=== PATIENT | female | born 1940 | race Caucasian/White ===

== ENCOUNTER 2017-05-13 08:52 | Outpatient (POV) | payer MEDICARE, OTHER, SELFPAY | END 2017-05-13 11:21 | disposition home or self-care (01) | PROVIDERS: Visit Provider Podiatrist | DX: L84 Corns and callosities (principal); M20.11 Hallux valgus (acquired), right foot; M19.072 Primary osteoarthritis, left ankle and foot; M19.071 Primary osteoarthritis, right ankle and foot | CPT/HCPCS: 11056; 99213 ==

== ENCOUNTER → 2017-08-12 09:38 | Outpatient (CLI) | payer MEDICARE, SELFPAY ==
--- NOTE | 2017-08-12 09:41 | XR_ITS ---
XR foot RT min 3V, XR foot LT min 3V Ordering Physician: Carmen Mireles DPM Patient Age: 76 years: Female HISTORY: TECHNIQUE: Right foot 3 view weightbearing Left foot 3 view weightbearing COMPARISON :Left foot November 2016 LEFT FOOT 3 views: No significant change since November 20 17. There is a old healed fracture with mild deformity at distal distal fifth metatarsal. A fairly good alignment at this level with but with some mild offset of the on the oblique view again noted. The tarsals appear intact.. Mild hypertrophic spurring at the dorsal aspect of the metatarsal phalangeal joint as seen on lateral view. It most likely mainly involving the first metatarsophalangeal joint.. Moderate thickness of the cortex at metatarsals but no periosteal reaction A a slight lateral tilt of the distal phalanx great toe only with only minor flexion deformity at the toes. There may be some early narrowing at the DIP and to a screening PIP joint of the second and possibly third toe. . Suggestion of early Pes planus noted on lateral view.. IMPRESSION. Left foot: 1.. Suggestion of minor degenerative changes first tarsal metatarsal joint. 2. borderline pes planus suggested.. 3. Old healed fracture fifth metatarsal RIGHT FOOT 3 views Hallux valgus at right foot . Bunion deformity with small subchondral cyst, or disrupting cortex medial margin metatarsal head is seen best on the oblique view. Along with this there is accentuated flexion at the second toe and to lesser other toes. There may be some early degenerative changes at the DIP and PIP of toes, most evident at the second toe. Borderline pes planus on the lateral view. IMPRESSION Hallux valgus with bunion deformity at right foot. Other minor observations above
== END ==
PROVIDERS: PCP Internal Medicine Adolescent Medicine; Visit Provider Podiatrist
DX: M21.611 Bunion of right foot (principal); M21.612 Bunion of left foot
CPT/HCPCS: 73630

== ENCOUNTER → 2017-09-20 07:56 | Outpatient (CLI) | payer MEDICARE, SELFPAY ==
[2017-09-20 09:38] LABS: Hemoglobin A1C 6.2 % (0.0-7.0)
[2017-09-20 10:39] LABS: Alanine Aminotransferase 32 U/L (12-78); Albumin/Globulin Ratio 1.3 (1.1-1.8); Alkaline Phosphatase 99 U/L (46-116); Anion Gap 13.7 mEq/L (5-15); Aspartate Amino Transferase 22 U/L (15-37); Bilirubin,Total 0.4 mg/dL (0.2-1.0); Blood Urea Nitrogen 23 mg/dL (7-18); Calcium 9.7 mg/dL (8.5-10.1); Carbon Dioxide 30 mmol/L (21.0-32.0); Chloride 101 mmol/L (98-107); Chol/HDL Ratio 2.5 (1-3.5); Cholesterol 130 mg/dL (140-200); Creatinine,Serum 0.81 mg/dL (0.55-1.02); Estimated Glomerular Filt Rate 69 ml/min (>60); GFR (African American) 83 ML/MIN (>60); Globulin 3.2 gm/dl (1.3-3.2); Glucose 130 mg/dL (74-106); HDL Cholesterol 53 mg/dL (29-89); LDL Cholesterol 62 mg/dL (0-130); Potassium 4.7 mmoL/L (3.5-5.1); Sodium 140 mmol/L (136-145); Total Protein,Serum 7.2 gm/dL (6.4-8.2); Triglycerides 77 mg/dL (30-200); VLDL Cholesterol 15 mg/dL (0-40)
[2017-09-22 18:49] LABS: Microalbumin, Urine <3.0 ug/mL (Not Estab.)
== END ==
PROVIDERS: Visit Provider Nurse Practitioner Family
DX: R73.9 Hyperglycemia, unspecified (principal); I10 Essential (primary) hypertension; E78.5 Hyperlipidemia, unspecified
CPT/HCPCS: 36415; 80053; 80061; 82043; 83036

== ENCOUNTER → 2017-09-23 06:51 | Outpatient (CLI) | payer MEDICARE, SELFPAY ==
--- NOTE | 2017-09-23 06:57 | CA_ITS ---
PROCEDURE: 2-D M-mode and color Doppler study INDICATIONS FOR THE TEST: Chest pain COPD Heart Murmur Tobacco Smoking Palpitations Fatigue Syncope Edema HypertensionXDiabetes Mellitus Rheumatic Fever SOB POPE Obesity HyperlipidemiaX Family History HD Additional History PACEMAKER,ABN EKG,AF PATIENT INFORMATION HEIGHT: 63 WEIGHT:143 GENDER: Female B/P:126/60 2-D/M-MODE INTERPRETATION: 2-D MEASUREMENTS OBSERVED VALUES IN CMS Right Ventricular Dimension (RVDd) 2.4 Interventricular Septum (Thickness)(IVsd) .7 Left Ventricular Internal Dimensions(LVIDd) 4.5 Left Ventricular Posterior Wall (Thickness)(LVPWd) 1.0 Aortic Root 2.7 Aortic Cusp Separation 1.8 Left Atrial Dimensions (LAD) 2.6 2D 1. Left atrium is mildly enlarged, left ventricle is normal size, visually estimated ejection fraction 55% with no obvious regional wall motion abnormality. 2. The right atrium and right ventricle are mildly enlarged with normal contractility. There is a pacemaker lead seen in the right ventricle. 3. The aortic valve is minimally thickened and fibrosed. 4. The mitral and tricuspid valve leaflets are minimally thickened. 5. The pulmonic valve is poorly visualized. 6. No significant pericardial effusion noted. DOPPLER INTERROGATION: Doppler interrogation of the aortic, mitral and tricuspid valvular presence of mild mitral, mild aortic and mild tricuspid regurgitation, calculated right ventricular systolic pressure is 38 mmHg consistent with mild pulmonary hypertension, grade 1 diastolic dysfunction seen with tissue Doppler evidence of raised left atrial pressure. CONCLUSION: 1. Mildly enlarged left atrium, normal left ventricular size, visually estimated ejection fraction 55% with no obvious regional wall motion abnormality. Grade 1 diastolic dysfunction seen with tissue Doppler evidence of raised left atrial pressure. 2. Mildly enlarged right atrium and right ventricle, contractility of the right ventricle is normal, there is a pacemaker lead seen in the right atrium and right ventricle. 3. Mild aortic, mild mitral and tricuspid regurgitation, calculated right ventricular systolic pressure 38 mmHg consistent with mild pulmonary hypertension. 4. No significant pericardial effusion noted.
== END ==
PROVIDERS: PCP Internal Medicine Adolescent Medicine; Visit Provider Internal Medicine Cardiovascular Disease
DX: R94.31 Abnormal electrocardiogram [ECG] [EKG] (principal); I10 Essential (primary) hypertension; Z95.0 Presence of cardiac pacemaker; Z86.79 Personal history of other diseases of the circulatory system
CPT/HCPCS: 93306

== ENCOUNTER → 2018-01-08 15:04 | Outpatient (CLI) | payer MEDICARE, SELFPAY ==
[2018-01-08 15:41] LABS: Basophils % 0.4 % (0.1-2.0); Eosinophils # 0.2 K/mm3 (0.0-0.4); Eosinophils % 2.3 % (0.1-12.0); Hematocrit 41.3 % (37.0-47.0); Hemoglobin 13.9 g/dL (12.2-16.2); Lymphocytes # 2.5 K/mm3 (0.7-4.5); Lymphocytes % 26.4 K/mm3 (10-50); Mean Corpuscular HGB Conc 33.6 g/dL (31.8-35.4); Mean Corpuscular Hemoglobin 29.7 pg (27.0-31.2); Mean Corpuscular Volume 88.3 fl (81-99); Mean Platelet Volume 6.9 fl (7.4-10.4); Monocytes # 0.4 K/mm3 (0.1-1.0); Monocytes % 4.5 % (1.7-9.3); Neutrophils # 6.2 K/mm3 (1.8-7.8); Neutrophils % 66.4 % (37.0-80.0); Platelet Count 302 K/mm3 (142-424); Red Blood Count 4.67 M/mm3 (4.20-5.40); Red Cell Distribution Width 13.9 % (11.5-17.5); White Blood Count 9.3 K/mm3 (4.8-10.8)
[2018-01-08 16:36] LABS: Alanine Aminotransferase 27 U/L (12-78); Albumin/Globulin Ratio 1.2 (1.1-1.8); Alkaline Phosphatase 106 U/L (46-116); Aspartate Amino Transferase 18 U/L (15-37); Bilirubin,Total 0.3 mg/dL (0.2-1.0); Blood Urea Nitrogen 28 mg/dL (7-18); Calcium 9.4 mg/dL (8.5-10.1); Carbon Dioxide 29 mmol/L (21.0-32.0); Chloride 102 mmol/L (98-107); Estimated Glomerular Filt Rate 48 ml/min (>60); GFR (African American) 58 ML/MIN (>60); Globulin 3.4 gm/dl (1.3-3.2); Glucose 107 mg/dL (74-106); Sodium 139 mmol/L (136-145); T4 (Thyroxine) 11.4 ug/dl (4.7-13.3); Total Protein,Serum 7.4 gm/dL (6.4-8.2); Triiodothryronine (T3) Uptake 35 % (31-39)
== END ==
PROVIDERS: Visit Provider Internal Medicine Adolescent Medicine
DX: R63.4 Abnormal weight loss (principal); R73.9 Hyperglycemia, unspecified
CPT/HCPCS: 36415; 80053; 84436; 84443; 84479; 85025

== ENCOUNTER → 2018-02-26 12:54 | Outpatient (CLI) | payer MEDICARE, SELFPAY ==
[2018-02-26 13:40] LABS: Basophils % 0.4 % (0.1-2.0); Eosinophils # 0.2 K/mm3 (0.0-0.4); Eosinophils % 2.2 % (0.1-12.0); Hematocrit 38.6 % (37.0-47.0); Hemoglobin 12.4 g/dL (12.2-16.2); Lymphocytes # 2.2 K/mm3 (0.7-4.5); Lymphocytes % 28.4 K/mm3 (10-50); Mean Corpuscular HGB Conc 32.2 g/dL (31.8-35.4); Mean Corpuscular Volume 89.8 fl (81-99); Mean Platelet Volume 6.9 fl (7.4-10.4); Monocytes # 0.4 K/mm3 (0.1-1.0); Monocytes % 4.8 % (1.7-9.3); Neutrophils # 4.9 K/mm3 (1.8-7.8); Neutrophils % 64.1 % (37.0-80.0); Platelet Count 302 K/mm3 (142-424); Red Cell Distribution Width 13.7 % (11.5-17.5); White Blood Count 7.7 K/mm3 (4.8-10.8)
[2018-02-26 14:35] LABS: Hemoglobin A1C 6.8 % (0.0-7.0)
[2018-02-26 14:41] LABS: Alanine Aminotransferase 24 U/L (12-78); Albumin Level 3.6 gm/dL (3.4-5.0); Albumin/Globulin Ratio 1.2 (1.1-1.8); Alkaline Phosphatase 94 U/L (46-116); Anion Gap 9.6 mEq/L (5-15); Aspartate Amino Transferase 19 U/L (15-37); Bilirubin,Total 0.6 mg/dL (0.2-1.0); Blood Urea Nitrogen 20 mg/dL (7-18); Calcium 9.6 mg/dL (8.5-10.1); Carbon Dioxide 31 mmol/L (21.0-32.0); Chloride 99 mmol/L (98-107); Creatinine,Serum 0.86 mg/dL (0.55-1.02); Estimated Glomerular Filt Rate 64 ml/min (>60); Free Thyroxine Index 4.1 ug/dL (5.93-13.13); GFR (African American) 78 ML/MIN (>60); Glucose 124 mg/dL (74-106); Potassium 4.6 mmoL/L (3.5-5.1); Sodium 135 mmol/L (136-145); T4 (Thyroxine) 11.4 ug/dl (4.7-13.3); Thyroid Stimulating Hormone 0.63 uIU/ml (0.358-3.740); Total Protein,Serum 6.6 gm/dL (6.4-8.2); Triiodothryronine (T3) Uptake 36 % (31-39)
[2018-02-26 15:28] LABS: Erythrocyte Sedimentation Rate 11 mm/hr (0-30)
[2018-02-27 08:37] LABS: Vitamin B12 1007 pg/mL (232-1245); Vitamin D 25 Hydroxy 46.6 ng/mL (30.0-100.0)
[2018-02-27 12:19] LABS: Anti-Centromere B Antibodies <0.2 AI (0.0-0.9); Anti-Jo-1 <0.2 AI (0.0-0.9); Anti-Smith Antibody <0.2 AI (0.0-0.9); Antichromatin Antibodies <0.2 AI (0.0-0.9); Antiscleroderma-70 Antibodies <0.2 AI (0.0-0.9); RNP Antibodies <0.2 AI (0.0-0.9); Sjogren's Anti-SS-A 0.4 AI (0.0-0.9); Sjogren's Anti-SS-B <0.2 AI (0.0-0.9)
[2018-02-27 12:55] LABS: Anti-DNA (DS) Ab Qn <1 IU/mL (0-9)
== END ==
PROVIDERS: PCP Internal Medicine Adolescent Medicine; Visit Provider Nurse Practitioner Family
DX: R20.2 Paresthesia of skin (principal); M21.372 Foot drop, left foot; G72.9 Myopathy, unspecified; R73.9 Hyperglycemia, unspecified
CPT/HCPCS: 36415; 80053; 82607; 82652; 83036; 84436; 84443; 84479; 85025; 85651; 86225; 86235

== ENCOUNTER → 2018-03-31 07:58 | Outpatient (POV) | payer MEDICARE, SELFPAY | PROVIDERS: Visit Provider Specialist | DX: M21.372 Foot drop, left foot (principal); R20.2 Paresthesia of skin | CPT/HCPCS: 95886; 95908 ==

== ENCOUNTER 2018-04-28 13:43 | Outpatient (RCR) | payer MEDICARE, SELFPAY | END 2018-04-28 13:50 | disposition home or self-care (01) | LOC: PT 13:43 | PROVIDERS: Visit Provider Podiatrist | DX: M21.372 Foot drop, left foot (principal) | CPT/HCPCS: 97110; 97163 ==

== ENCOUNTER → 2018-05-07 10:05 | Outpatient (CLI) | payer MEDICARE, SELFPAY ==
[2018-05-07 10:48] LABS: Basophils % 0.6 % (0.1-2.0); Eosinophils # 0.3 K/mm3 (0.0-0.4); Hematocrit 38.7 % (37.0-47.0); Hemoglobin 12.1 g/dL (12.2-16.2); Lymphocytes # 1.2 K/mm3 (0.7-4.5); Lymphocytes % 19.7 % (10-50); Mean Corpuscular HGB Conc 31.3 g/dL (31.8-35.4); Mean Corpuscular Hemoglobin 28.4 pg (27.0-31.2); Mean Corpuscular Volume 90.8 fl (81-99); Mean Platelet Volume 7.3 fl (7.4-10.4); Monocytes # 0.3 K/mm3 (0.1-1.0); Monocytes % 4.7 % (1.7-9.3); Neutrophils # 4.4 K/mm3 (1.8-7.8); Platelet Count 297 K/mm3 (142-424); Red Blood Count 4.26 M/mm3 (4.20-5.40); Red Cell Distribution Width 13.5 % (11.5-17.5); White Blood Count 6.3 K/mm3 (4.8-10.8)
[2018-05-07 12:06] LABS: Alanine Aminotransferase 28 U/L (12-78); Albumin Level 3.7 gm/dL (3.4-5.0); Albumin/Globulin Ratio 1.2 (1.1-1.8); Alkaline Phosphatase 84 U/L (46-116); Amylase 28 U/L (25-115); Anion Gap 12.7 mEq/L (5-15); Aspartate Amino Transferase 16 U/L (15-37); Bilirubin,Total 0.4 mg/dL (0.2-1.0); Blood Urea Nitrogen 17 mg/dL (7-18); Calcium 9.5 mg/dL (8.5-10.1); Carbon Dioxide 30 mmol/L (21.0-32.0); Chloride 99 mmol/L (98-107); Creatinine,Serum 0.92 mg/dL (0.55-1.02); Estimated Glomerular Filt Rate 59 ml/min (>60); Free Thyroxine Index 4.3 ug/dL (5.93-13.13); GFR (African American) 72 ML/MIN (>60); Globulin 3.1 gm/dl (1.3-3.2); Glucose 159 mg/dL (74-106); Lipase 93 u/L (73-393); Potassium 4.7 mmoL/L (3.5-5.1); Sodium 137 mmol/L (136-145); T4 (Thyroxine) 12.2 ug/dl (4.7-13.3); Thyroid Stimulating Hormone 0.45 uIU/ml (0.358-3.740); Total Protein,Serum 6.8 gm/dL (6.4-8.2); Triiodothryronine (T3) Uptake 35 % (31-39)
[2018-05-07 14:22] LABS: Hemoglobin A1C 6.7 % (0.0-7.0)
== END ==
PROVIDERS: Visit Provider Internal Medicine Adolescent Medicine
DX: R10.32 Left lower quadrant pain (principal); R73.9 Hyperglycemia, unspecified; R63.4 Abnormal weight loss; R10.13 Epigastric pain
CPT/HCPCS: 36415; 80053; 82150; 83036; 83690; 84436; 84443; 84479; 85025

== ENCOUNTER → 2018-05-13 09:37 | Outpatient (CLI) | payer MEDICARE, SELFPAY ==
--- NOTE | 2018-05-13 09:44 | CT_ITS ---
CT abdomen pelvis w con CLINICAL INDICATION: Left lower quadrant pain weight loss and cramping him a a a a a a a a a a a a a a a a a a him a ITS.REASON: LLQ PAIN, ABD PAIN, WGT LOSS ORDERING PHYSICIAN: Adalberto Brown MD PATIENT AGE: 77 years COMPARISON: None TECHNIQUE: Axial images obtained with sagittal and coronal reformats. All CT scans at the facility use one or more dose reduction, viz: automated exposure control, ma/kV adjustment per patient size (including targeted exams where dose is matched to indication, i.e. head), or iterative reconstruction technique. PROCEDURE: Oral Contrast: Redicat IV Contrast: 75 mL of Isovue-370 FINDINGS: There are multiple bilateral lower lobe noncalcified nodules which measure up to 10 x 8 mm in the right lower lobe and 8 mm in the left lower lobe. These are suspicious for pulmonary metastasis. Dedicated CT chest may be of further value. There is a 2.7 cm isodense lesion in the hepatic dome posteriorly containing a peripheral calcification is is well-circumscribed on the immediate enhanced image but is somewhat more ill-defined on the delayed enhanced images. There is an additional 8 mm isodense lesion in the right hepatic lobe posteriorly adjacent to the larger lesion. No other liver abnormalities are evident. The spleen and right adrenal gland are unremarkable. The left adrenal gland somewhat bulky. The kidneys have an unremarkable appearance. Pancreas is abnormal. There is an ill-defined mass in the body of the pancreas measuring 3.6 x 3 cm. There is dilatation of the pancreatic duct distal to this lesion which is suspicious for neoplasm. The pancreatic head has an unremarkable appearance. There is increased soft tissue density surrounding the celiac artery at its bifurcation with increased density noted in the portal region consistent with adenopathy. The portal vein appears somewhat narrowed by this adenopathy. There are collateral veins present in the left upper quadrant There is also increased soft tissue density in the periaortic region consistent with adenopathy. This is more extensive along the left para-aortic region and extends inferiorly to the level of the aortic bifurcation. No intestinal obstruction or free air. There is mild thickening of these sigmoid colon. This is nonspecific and could be due to nondistention. No evidence of appendicitis or diverticulitis. There is degenerative disc disease at L3-L4 with retrolisthesis of L3 of approximately 6 mm. IMPRESSION: 1. 3.6 x 3 cm mass of the body of the pancreas consistent with pancreatic carcinoma with associated adenopathy in the portal region and in the retroperitoneum. There is narrowing of the main portal vein with collateral vessels in the left upper quadrant 2. Multiple pulmonary nodules in the lung bases consistent with metastatic disease. 3. At least 2 isodense lesions of the liver which are also suspicious for metastasis
== END ==
PROVIDERS: PCP Internal Medicine Adolescent Medicine; Visit Provider Internal Medicine Adolescent Medicine
DX: R10.32 Left lower quadrant pain (principal); R63.4 Abnormal weight loss
CPT/HCPCS: 74177; Q9967

== ENCOUNTER → 2018-05-14 12:49 | Outpatient (CLI) | payer MEDICARE, SELFPAY ==
--- NOTE | 2018-05-14 | CT_ITS ---
CT chest w con HISTORY: ITS.REASON: ABNORMAL CT ABD PELVIS,,R/O METS ORDERING PHYSICIAN: Rj Snyder PATIENT AGE: 77 years COMPARISON: Technique: Axial images obtained. Sagittal and coronal reformatted images are also generated and reviewed. All CT scans at the facility use one or more dose reduction, viz: automated exposure control, ma/kV adjustment per patient size (including targeted exams where dose is matched to indication, i.e. head), or iterative reconstruction technique. FINDINGS: LUNGS NODULES. Very numerous (too numerous to count) pulmonary nodular densities scattered throughout the lung carrion. Majority have Slightly ill-defined margins. Many contain a small dot of cavitation centrally. These most likely reflect metastatic nodules, & related to the pancreatic mass seen on recent CT abdomen.. Other Etiology of these small nodules must less likely but may want to exclude AFB to be thorough in the workup given the central cavitation pattern.. Majority of these pulmonary nodules measure less than 5-6 mm but there are several the measures slightly larger. For example: R UL nodule axial image 32 measuring up to 7.5 mm;. Medial RUL nodule measuring 10 mm just adjacent to the mediastinum axial slice 35.. Posterior RLL 10 x 7 mm nodule posterior RLL axial slice 54 small central cavitation. 9 mm nodule towards right CP angle axial slice 58 with small dot of central cavitation Posterior RLL and posterior sulcus 8 mm nodule Left lung. Numerous overall slight smaller throughout the left lung, but there is a 7 mm nodule at the posterior L UL axial slice 43. Also at the central left lung base 8.5 mm noduleaxial slice 52. . No pleural effusions. No focal pneumonia. Mild chronic lung changes. BILATERAL HILAR ADENOPATHY:. Low-density nodes here are similar to what was seen in the abdomen. Right sveta. 16 mm node right infrahilar region as well as a similar sized nodes just above the right pulmonary artery. Left sveta. Similar diffuse adenopathy but less prominent nodes MEDIASTINAL ADENOPATHY The adenopathy at the hilar regions extends to the base of the sveta and complete with a generous subcarinal lymph node which spans 25 mm transverse x 12 mm. Height and AP Collection of low-density enlarged nodes at the right precarinal region of the span up to 28 mm x 15 mm Great vessels appear satisfactory. Heart with mild cardiomegaly no pericardial effusion. Pacemaker noted. Overlying left chest. BONES . Again the benign hemangioma L1 noted. Stable since old MRI been no significant osseous lesions. Contrast from the myelogram earlier today earlier today is seen throughout the thoracic spine with no prominent additional findings at thoracic spine. Degenerative disc with Spondylosis lower C-spine C6/7 partially imaged. Limited views of UPPER MOST ABDOMEN: Left adrenal gland is enlarged. 20 mm transverse x 15 mm AP nonspecific nodule up to 3 cm height. Slight haziness about the left adrenal also noted-this. . Also at the upper abdomen the mass lesion at the body of pancreas is noted. It appears to partially engulf the branches of the celiac artery. . Periaortic retroperitoneal adenopathy, again noted along with Likely some additional adenopathy about the head of the pancreas as well . There also seems to be some subtle may be some wispy fluid from the tail of pancreas.. Warrant correlation with amylase and lipase as well. The BASE OF NECK is included.: Enlarged right lobe of thyroid which can contains nodules. At the inferior pole right lobe thyroid is 13 mm low-density nodule. Just superior to this is a large dense calcification spanning 13 mm AP x 12 mm height. Superior to this is a likely nodule a calcified rim measuring up to 17 mm. These are all best seen on coronal im
--- NOTE | 2018-05-14 12:56 | IR_ITS ---
IR myelogram spine lumbosacral =====LUMBAR MYELOGRAM Ordering Physician: Rj Snyder Patient Age: 77 years: Female. HISTORY: ITS.REASON: BACK PAIN low back pain. Hip pain COMPARISON :CT abdomen from yesterday: 05/13/2018 ===== PROCEDURE: Patient in prone position on the fluoroscopy table.. Following Sterile preparation and local skin anesthesia a 22-gauge spinal needle was directed to the thecal sac, entering between l5/S1 spinous processes... Lumbar puncture performed by Dr. Webster with clear CSF was obtained and sent for basic laboratories.. A total of 17 mL Isovue M200 was then introduced slowly filling the lower thecal sac. Myelogram images were obtained and subsequently patient was taken to CT for postmyelogram CT lumbar spine. Total fluoroscopy time 3 minutes 50 seconds ===== FINDINGS L5/S1. Mild disc bulge, indents anterior aspect of thecal sac. Bilateral facet hypertrophy yields mild tapering of the thecal sac L4/5: The myelogram images demonstrate most pronounced narrowing, tapering thecal sac at at this L4/5 level-reflecting the combination of the prominent posterior element hypertrophy along with disc bulge at this level. The disc bulge indents anterior aspect of the thecal sac to the left more so than right.The facet and ligamentum flavum hypertrophy yields Tapering, narrowing the spinal canal indenting the thecal sac on left more so than right as well. There is diminished filling of the axillary nerve roots bilaterally at the L4/5 level. L3/4. Marked degenerative disc space narrowing. 5.5 mm retrolisthesis of L3 on L4.-These Features indenting anterior aspect thecal sac L2/3. Mild disc bulge indents the anterior aspect of thecal sac.. There is some retained barium in the transverse colon from yesterday's CT abdomen which partially interferes with visualizing L2 on this myelogram study however does not significantly interfere with imaging on CT. . Patient was observed in outpatient of post myelogram and a subsequent CT chest was performed due to further evaluate multiple lung nodule densities noted on these recent CT studies IMPRESSION Multilevel degenerative changes & spondylosis evident on this myelogram with additional detail on subsequent CT postmyelogram. L4/5 narrowing of thecal sac & mild spinal stenosis most evident at this level.. Asymmetric disc bulge along with posterior element hypertrophy indents the thecal sac more so to the left than right L3/4. Marked disc space narrowing with retrolisthesis. Mild/moderate indentation upon the anterior thecal sac L5/S1 slight tapering of thecal sac due to disc bulge & facet hypertrophy . (Note residual contrast in colon from yesterday CT abdomen 05/13/2018 partially obscures the L2 level but this region is nicely seen on the CT postmyelogram)
--- NOTE | 2018-05-14 13:49 | CT_ITS ---
CT lumbar spine w con -post myelogram INDICATION: Mid back pain. Relief with recent epidural ITS.REASON: MYELOGRAM ORDERING PHYSICIAN: Rj Snyder PATIENT AGE: 77 years COMPARISON: CT abdomen from yesterday. Also lumbar spine series from 07/20/2016 Old MRI lumbar spine November 22, 2012 prior TECHNIQUE: Following the patient's lumbar myelogram patient was taken to CT suite for the CT lumbar spine post myelogram study. These CT Images begin at the T10 level continuing to the sacrum Helical axial images obtained through the spine with sagittal and coronal reformats. All CT scans at the facility use one or more dose reduction, viz: automated exposure control, ma/kV adjustment per patient size (including targeted exams where dose is matched to indication, i.e. head), or iterative reconstruction technique. FINDINGS: First of would note yesterday's CT abdomen study which reveal a significant appearing mass body of pancreas with associated adenopathy & retroperitoneal adenopathy. Please note that report... Today's lumbar CT and yesterday's CT abdomen shows numerous lung nodules at the lung bases and thus a subsequent CT chest performed to evaluate such. L5/S1. Mild diffuse disc bulge. Prominent Bilateral facet hypertrophy L4/5. Degenerative disc space narrowing. Asymmetric disc bulge to the left-with additional disc bulge/mild disc protrusion additionally encroaching upon the left foramen.... Also Generous posterior element & facet hypertrophy at this level which indents the posterior thecal sac, particularly to the right.. These features combine to yield moderate central canal stenosis along with bilateral foraminal encroachment; fairly pronounced foraminal encroachment to the left due to the additional disc bulge or mild disc protrusion at this level. L3/4. Long-standing Marked degenerative disc space narrowing-with prominent reactive endplate changes about this narrowed disc space. 5.5 mm mm long-standing retrolisthesis of L3 on L4. Widening at the facet joints bilaterally due to the retrolisthesis only mild degenerative changes at this level. L2/3. Mild foraminal disc bulge.. Perhaps scant 1-2 mm retrolisthesis. Equivocal L1/L2. Disc intact neural foramen widely patent. Conus ends appropriately at L2 level. Long-standing Benign hemangioma at L1 was seen on the old MRI studies November 2012 and accounts for the 2 cm diameter osseous irregularity at L1 vertebral body on today's study. L1/L2. Disc intact. Only question of scant spondylotic bulge to the right. Negligible Neural foramen widely patent T11/12 T10-11 disc spaces unremarkable ---IMPRESSION 1. Multilevel degenerative disc & facet changes again seen. Slight progression of findings at multiple levels since available 2012 MR comparison study. ... L3/4. Marked degenerative disc space narrowing & changes, with retrolisthesis L3 on L4.. slight narrowing the Central canal with moderate bilateral foraminal encroachment ... L4/5 Asymmetric disc bulge to the left, with additional disc bulge/mild protrusion encroaches upon left foramen. Prominent facet & ligament flavum hypertrophy. The combination of features yields mild /moderate central canal stenosis, as well as bilateral foraminal encroachment most evident to the left ... L5/S1. Prominent facet hypertrophy right greater than left. 2.. Other major observations: ... pancreatic mass body pancreas, with retroperitoneal adenopathy and numerous metastatic lung lesions at lung bases
[2018-05-14 14:19] LABS: Glucose,CSF 77 mg/dL (40-70); Total Protein,CSF 44.4 mg/dL (15-45)
[2018-05-14 14:45] LABS: Appearance,CSF Clear (Clear); Volume,CSF 3 mL
[2018-05-14 14:46] LABS: Red Blood Cell,CSF 1 cells/uL (0); White Blood Cell,CSF 1 cells/uL (0-5)
[2018-05-14 16:00] LABS: Mononuclear WBCs,CSF 0 %; Polynuclear WBCs,CSF 100 %
== END ==
PROVIDERS: Radiology Diagnostic Radiology; PCP Internal Medicine Adolescent Medicine; Visit Provider Orthopaedic Surgery
DX: M54.9 Dorsalgia, unspecified (principal); R91.8 Other nonspecific abnormal finding of lung field
CPT/HCPCS: 62304; 71260; 72132; 82945; 84155; 89051; Q9966; Q9967

== ENCOUNTER → 2018-06-05 10:30 | Outpatient (CLI) | payer MEDICARE, SELFPAY ==
[2018-06-05 11:06] LABS: Basophils % 0.3 % (0.1-2.0); Eosinophils # 0.3 K/mm3 (0.0-0.4); Eosinophils % 3.1 % (0.1-12.0); Hematocrit 40.9 % (37.0-47.0); Hemoglobin 12.8 g/dL (12.2-16.2); Lymphocytes # 1.1 K/mm3 (0.7-4.5); Lymphocytes % 12.3 % (10-50); Mean Corpuscular HGB Conc 31.3 g/dL (31.8-35.4); Mean Corpuscular Hemoglobin 28.6 pg (27.0-31.2); Mean Corpuscular Volume 91.2 fl (81-99); Mean Platelet Volume 7.4 fl (7.4-10.4); Monocytes # 0.4 K/mm3 (0.1-1.0); Monocytes % 4.7 % (1.7-9.3); Neutrophils # 6.8 K/mm3 (1.8-7.8); Neutrophils % 79.5 % (37.0-80.0); Platelet Count 278 K/mm3 (142-424); Red Blood Count 4.49 M/mm3 (4.20-5.40); Red Cell Distribution Width 13.2 % (11.5-17.5); White Blood Count 8.6 K/mm3 (4.8-10.8)
[2018-06-05 11:38] LABS: Alanine Aminotransferase 21 U/L (12-78); Albumin Level 3.5 gm/dL (3.4-5.0); Alkaline Phosphatase 102 U/L (46-116); Anion Gap 12.2 mEq/L (5-15); Aspartate Amino Transferase 17 U/L (15-37); Bilirubin,Total 0.4 mg/dL (0.2-1.0); Blood Urea Nitrogen 17 mg/dL (7-18); Calcium 9.2 mg/dL (8.5-10.1); Carbon Dioxide 28 mmol/L (21.0-32.0); Chloride 96 mmol/L (98-107); Creatinine,Serum 0.93 mg/dL (0.55-1.02); Estimated Glomerular Filt Rate 59 ml/min (>60); GFR (African American) 71 ML/MIN (>60); Globulin 3.5 gm/dl (1.3-3.2); Glucose 218 mg/dL (74-106); Potassium 4.2 mmoL/L (3.5-5.1); Sodium 132 mmol/L (136-145)
[2018-06-07 21:48] LABS: CA 19-9 7210 U/mL (0-35)
== END ==
PROVIDERS: Visit Provider Internal Medicine Medical Oncology
DX: C25.9 Malignant neoplasm of pancreas, unspecified (principal)
CPT/HCPCS: 36415; 80053; 85025; 86316

== ENCOUNTER 2018-06-12 09:38 | Outpatient (CLI) | payer MEDICARE, SELFPAY ==
[2018-06-12] VITALS (8 sets, daily range): BP systolic 95–143; BP diastolic 56–70; PULSE 59–75; RESP 18; TEMP 36.6; O2SAT 98
== END 2018-06-12 13:00 | disposition home or self-care (01) ==
LOC: INF 09:38
PROVIDERS: Visit Provider Internal Medicine Medical Oncology
DX: Z51.11 Encounter for antineoplastic chemotherapy (principal); C25.9 Malignant neoplasm of pancreas, unspecified
CPT/HCPCS: 96413; 96417; J9201; J9264; Q0166

== ENCOUNTER → 2018-06-16 14:57 | Outpatient (CLI) | payer MEDICARE, SELFPAY ==
[2018-06-16 15:49] LABS: Basophils % 0.3 % (0.1-2.0); Eosinophils # 0.3 K/mm3 (0.0-0.4); Hematocrit 37.7 % (37.0-47.0); Hemoglobin 11.9 g/dL (12.2-16.2); Lymphocytes # 1.2 K/mm3 (0.7-4.5); Mean Corpuscular HGB Conc 31.7 g/dL (31.8-35.4); Mean Corpuscular Hemoglobin 28.8 pg (27.0-31.2); Mean Corpuscular Volume 91.1 fl (81-99); Mean Platelet Volume 7.3 fl (7.4-10.4); Monocytes # 0.1 K/mm3 (0.1-1.0); Monocytes % 1.1 % (1.7-9.3); Neutrophils # 6.1 K/mm3 (1.8-7.8); Neutrophils % 78.7 % (37.0-80.0); Platelet Count 312 K/mm3 (142-424); Red Blood Count 4.14 M/mm3 (4.20-5.40); Red Cell Distribution Width 13.1 % (11.5-17.5); White Blood Count 7.8 K/mm3 (4.8-10.8)
[2018-06-16 16:38] LABS: Anion Gap 12.4 mEq/L (5-15); Blood Urea Nitrogen 26 mg/dL (7-18); Calcium 8.7 mg/dL (8.5-10.1); Carbon Dioxide 26 mmol/L (21.0-32.0); Chloride 100 mmol/L (98-107); Creatinine,Serum 1.21 mg/dL (0.55-1.02); Estimated Glomerular Filt Rate 43 ml/min (>60); GFR (African American) 52 ML/MIN (>60); Glucose 206 mg/dL (74-106); Potassium 4.4 mmoL/L (3.5-5.1); Sodium 134 mmol/L (136-145)
== END ==
PROVIDERS: Visit Provider Surgery
DX: R11.0 Nausea (principal); C80.1 Malignant (primary) neoplasm, unspecified
CPT/HCPCS: 36415; 80048; 85025

== ENCOUNTER 2018-06-19 10:56 | Outpatient (CLI) | payer MEDICARE, SELFPAY ==
[2018-06-19 11:58] VITALS: BP 128/69; PULSE 72; RESP 18; TEMP 36.6; O2SAT 98
[2018-06-19 12:28] VITALS: BP 123/71; PULSE 74; RESP 18; O2SAT 97
[2018-06-19 12:58] VITALS: BP 130/71; PULSE 75; RESP 18; O2SAT 98
[2018-06-19 13:28] VITALS: BP 127/74; PULSE 76; RESP 18; O2SAT 98
[2018-06-19 13:45] VITALS: BP 132/79; PULSE 73; RESP 18; O2SAT 97
== END 2018-06-19 13:45 | disposition home or self-care (01) ==
LOC: INF 10:56
PROVIDERS: Visit Provider Internal Medicine Medical Oncology
DX: Z51.11 Encounter for antineoplastic chemotherapy (principal); C25.9 Malignant neoplasm of pancreas, unspecified
CPT/HCPCS: 96413; 96417; J1642; J8501; J9201; J9264; Q0166

== ENCOUNTER → 2018-06-23 09:31 | Outpatient (CLI) | payer MEDICARE, SELFPAY ==
--- NOTE | 2018-06-23 09:40 | NVE_ITS ---
Venous Exam Indications: 729.5 Pain in limb. IMPRESSIONS 1. There is no evidence of significant reflux. 2. No evidence of deep vein thrombosis involving the veins of the left upper extremity 3. Superficial vein thrombosis involving the superficial veins of the left upper extremity Left upper extremity venous duplex. Doppler flow study including spectral analysis, color and joaquin scale imaging. Location: Vascular laboratory. Patient status: Outpatient. CRITICAL FINDINGS - Reported to: Evy - Read back and verified. - 06/23/18 - 1015 - + SVT Tables: Venous flow and imaging: + + + + Location Overall Flow properties + + + + Left internal jugular Patent Normal phasicity; spontaneous; compressible + + + + Left subclavian Patent Normal phasicity; spontaneous; normal augmentation; compressible + + + + Left axillary Patent Normal phasicity; spontaneous; normal augmentation; compressible + + + + Left brachial Patent Normal phasicity; spontaneous; normal augmentation; compressible + + + + Left cephalic Likely occluded + + + + Left basilic Patent Normal phasicity; spontaneous; normal augmentation; compressible + + + + Left radial Patent Compressible + + + + Left ulnar Patent Compressible + + + + (Report amended ) Electronically signed by: Tani Greenwood [id number]
== END ==
PROVIDERS: PCP Internal Medicine Adolescent Medicine; Visit Provider Emergency Medicine
DX: M79.602 Pain in left arm (principal)
CPT/HCPCS: 93971

== ENCOUNTER 2018-06-26 08:10 | Outpatient (CLI) | payer MEDICARE, SELFPAY ==
[2018-06-26] VITALS (7 sets, daily range): BP systolic 111–141; BP diastolic 52–82; PULSE 69–72; RESP 16–18; TEMP 36.7; O2SAT 93; BMI 22.2
[2018-06-26 08:59] LABS: Basophils % 0.4 % (0.1-2.0); Eosinophils # 0.1 K/mm3 (0.0-0.4); Eosinophils % 5.5 % (0.1-12.0); Hematocrit 29.5 % (37.0-47.0); Hemoglobin 9.4 g/dL (12.2-16.2); Lymphocytes # 0.8 K/mm3 (0.7-4.5); Lymphocytes % 39.3 % (10-50); Mean Corpuscular HGB Conc 31.8 g/dL (31.8-35.4); Mean Corpuscular Volume 91.4 fl (81-99); Mean Platelet Volume 7.8 fl (7.4-10.4); Monocytes % 2.2 % (1.7-9.3); Neutrophils # 1.1 K/mm3 (1.8-7.8); Neutrophils % 52.6 % (37.0-80.0); Platelet Count 133 K/mm3 (142-424); Red Blood Count 3.22 M/mm3 (4.20-5.40); Red Cell Distribution Width 13.3 % (11.5-17.5)
[2018-06-26 09:13] LABS: Alanine Aminotransferase 38 U/L (12-78); Albumin Level 2.5 gm/dL (3.4-5.0); Albumin/Globulin Ratio 0.7 (1.1-1.8); Alkaline Phosphatase 96 U/L (46-116); Anion Gap 11.8 mEq/L (5-15); Aspartate Amino Transferase 16 U/L (15-37); Bilirubin,Total 0.4 mg/dL (0.2-1.0); Blood Urea Nitrogen 13 mg/dL (7-18); Calcium 8.8 mg/dL (8.5-10.1); Carbon Dioxide 27 mmol/L (21.0-32.0); Chloride 100 mmol/L (98-107); Creatinine Clearance Estimated 43 mL/min (50-200); Creatinine,Serum 0.92 mg/dL (0.55-1.02); Estimated Glomerular Filt Rate 59 ml/min (>60); GFR (African American) 72 ML/MIN (>60); Globulin 3.7 gm/dl (1.3-3.2); Glucose 170 mg/dL (74-106); Potassium 3.8 mmoL/L (3.5-5.1); Sodium 135 mmol/L (136-145); Total Protein,Serum 6.2 gm/dL (6.4-8.2)
--- NOTE | 2018-07-02 13:47 | DIET.NUTRFU ---
Nutrition consult. Patient receiving chemo for pancreatic cancer. She reports starting to feel poorly about 2 days past each treatment. She usually eats chix noodle soup on those days. Otherwise, she reports she is able to eat adequately most days and she is maintaining her usual body weight. History does include a dx of diabetes approx 1 year ago, and she began using an herb berberine to control her blood sugars. She found this herb worked very well with lowering her blood sugar, but she also lost a lot of weight, approx 29 lbs over the year. Her current bmi is 21.4. Her main complaint is taste changes at this time. Particularly her coffee and teas. She is supplementing her diet with a Boost milkshake once a day. Recommendations: Discussed strategies for taste changes, baking soda/water mouth swishes prior to eating, consuming acidic foods to improve overall flavors. Recommended Beneprotein powder to add to soups, potatoes and hot cereals to improve her overall nutrition intake. Patient advised of dietitian as her nutrition resource and she is encouraged to contact us for further assistance.
== END 2018-06-26 12:25 | disposition home or self-care (01) ==
LOC: INF 08:19
PROVIDERS: Visit Provider Internal Medicine Medical Oncology
DX: Z51.11 Encounter for antineoplastic chemotherapy (principal); C25.9 Malignant neoplasm of pancreas, unspecified
CPT/HCPCS: 80053; 85025; 96413; 96417; J8501; J9201; J9264; Q0166

== ENCOUNTER 2018-07-10 08:40 | Outpatient (CLI) | payer MEDICARE, SELFPAY ==
[2018-07-10 08:46] VITALS: BMI 21.4
[2018-07-10 09:09] LABS: Basophils # 0.1 K/mm3 (0-0.2); Basophils % 0.9 % (0.1-2.0); Eosinophils # 0.2 K/mm3 (0.0-0.4); Eosinophils % 3.6 % (0.1-12.0); Hematocrit 32.2 % (37.0-47.0); Hemoglobin 10.3 g/dL (12.2-16.2); Lymphocytes # 1.4 K/mm3 (0.7-4.5); Lymphocytes % 27.1 % (10-50); Mean Corpuscular HGB Conc 32.1 g/dL (31.8-35.4); Mean Corpuscular Hemoglobin 28.9 pg (27.0-31.2); Monocytes # 0.5 K/mm3 (0.1-1.0); Monocytes % 8.4 % (1.7-9.3); Neutrophils # 3.2 K/mm3 (1.8-7.8); Neutrophils % 60.1 % (37.0-80.0); Platelet Count 735 K/mm3 (142-424); Red Blood Count 3.58 M/mm3 (4.20-5.40); Red Cell Distribution Width 15.9 % (11.5-17.5); White Blood Count 5.4 K/mm3 (4.8-10.8)
[2018-07-10 09:18] LABS: Alanine Aminotransferase 67 U/L (12-78); Albumin Level 2.9 gm/dL (3.4-5.0); Albumin/Globulin Ratio 0.8 (1.1-1.8); Alkaline Phosphatase 112 U/L (46-116); Aspartate Amino Transferase 30 U/L (15-37); Bilirubin,Total 0.3 mg/dL (0.2-1.0); Blood Urea Nitrogen 17 mg/dL (7-18); Calcium 8.9 mg/dL (8.5-10.1); Carbon Dioxide 28 mmol/L (21.0-32.0); Chloride 100 mmol/L (98-107); Creatinine Clearance Estimated 41 mL/min (50-200); Creatinine,Serum 0.87 mg/dL (0.55-1.02); Estimated Glomerular Filt Rate 63 ml/min (>60); GFR (African American) 77 ML/MIN (>60); Globulin 3.5 gm/dl (1.3-3.2); Glucose 175 mg/dL (74-106); Sodium 136 mmol/L (136-145); Total Protein,Serum 6.4 gm/dL (6.4-8.2)
[2018-07-10 10:55] VITALS: BP 120/53; PULSE 72; RESP 18; TEMP 36.4
[2018-07-10 11:10] VITALS: BP 125/60; PULSE 69; RESP 18
[2018-07-10 11:25] VITALS: BP 134/65; PULSE 74; RESP 18
[2018-07-10 11:40] VITALS: BP 151/68; PULSE 74; RESP 16
[2018-07-10 11:55] VITALS: BP 148/72; PULSE 71; RESP 16
[2018-07-10 12:15] VITALS: BP 155/74; PULSE 69; RESP 16
== END 2018-07-10 12:40 | disposition home or self-care (01) ==
LOC: INF 08:43
PROVIDERS: Visit Provider Internal Medicine Medical Oncology
DX: Z51.11 Encounter for antineoplastic chemotherapy (principal); C25.9 Malignant neoplasm of pancreas, unspecified
CPT/HCPCS: 80053; 85025; 96413; 96417; J8501; J9201; J9264; Q0166

== ENCOUNTER 2018-07-17 10:44 | Outpatient (CLI) | payer MEDICARE, SELFPAY ==
[2018-07-17 10:46] VITALS: BMI 21.7
[2018-07-17 11:06] LABS: Basophils % 0.8 % (0.1-2.0); Eosinophils # 0.3 K/mm3 (0.0-0.4); Eosinophils % 5.3 % (0.1-12.0); Hematocrit 31.5 % (37.0-47.0); Lymphocytes # 1.2 K/mm3 (0.7-4.5); Lymphocytes % 23.9 % (10-50); Mean Corpuscular HGB Conc 31.8 g/dL (31.8-35.4); Mean Corpuscular Hemoglobin 28.8 pg (27.0-31.2); Mean Corpuscular Volume 90.4 fl (81-99); Mean Platelet Volume 7.6 fl (7.4-10.4); Monocytes # 0.3 K/mm3 (0.1-1.0); Monocytes % 5.1 % (1.7-9.3); Neutrophils # 3.1 K/mm3 (1.8-7.8); Neutrophils % 64.9 % (37.0-80.0); Platelet Count 541 K/mm3 (142-424); Red Blood Count 3.48 M/mm3 (4.20-5.40); Red Cell Distribution Width 15.9 % (11.5-17.5); White Blood Count 4.8 K/mm3 (4.8-10.8)
[2018-07-17 11:23] LABS: Alanine Aminotransferase 57 U/L (12-78); Albumin Level 2.9 gm/dL (3.4-5.0); Albumin/Globulin Ratio 0.8 (1.1-1.8); Alkaline Phosphatase 109 U/L (46-116); Anion Gap 11.3 mEq/L (5-15); Aspartate Amino Transferase 26 U/L (15-37); Bilirubin,Total 0.2 mg/dL (0.2-1.0); Blood Urea Nitrogen 17 mg/dL (7-18); Calcium 9.2 mg/dL (8.5-10.1); Carbon Dioxide 29 mmol/L (21.0-32.0); Chloride 98 mmol/L (98-107); Creatinine Clearance Estimated 42 mL/min (50-200); Creatinine,Serum 0.82 mg/dL (0.55-1.02); Estimated Glomerular Filt Rate 68 ml/min (>60); GFR (African American) 82 ML/MIN (>60); Globulin 3.6 gm/dl (1.3-3.2); Glucose 182 mg/dL (74-106); Potassium 4.3 mmoL/L (3.5-5.1); Sodium 134 mmol/L (136-145); Total Protein,Serum 6.5 gm/dL (6.4-8.2)
[2018-07-17 12:50] VITALS: BP 131/73; PULSE 72; RESP 20; TEMP 36.5; O2SAT 98
[2018-07-17 13:20] VITALS: BP 129/67; PULSE 79; RESP 20; O2SAT 99
[2018-07-17 13:50] VITALS: BP 130/71; PULSE 76; RESP 20; O2SAT 98
[2018-07-17 14:16] VITALS: BP 133/69; PULSE 72; RESP 20; O2SAT 98
== END 2018-07-17 14:20 | disposition home or self-care (01) ==
LOC: INF 10:44
PROVIDERS: Visit Provider Internal Medicine Medical Oncology
DX: Z51.11 Encounter for antineoplastic chemotherapy (principal); C25.9 Malignant neoplasm of pancreas, unspecified
CPT/HCPCS: 80053; 85025; 96413; 96417; J8501; J9201; J9264; Q0166

== ENCOUNTER 2018-07-24 10:39 | Outpatient (CLI) | payer MEDICARE, SELFPAY ==
[2018-07-24] VITALS (8 sets, daily range): BP systolic 122–136; BP diastolic 53–77; PULSE 69–75; RESP 18; TEMP 36.6; O2SAT 100; BMI 21.4
[2018-07-24 10:58] LABS: Basophils % 0.7 % (0.1-2.0); Eosinophils # 0.1 K/mm3 (0.0-0.4); Eosinophils % 4.6 % (0.1-12.0); Hematocrit 28.3 % (37.0-47.0); Hemoglobin 9.5 g/dL (12.2-16.2); Lymphocytes # 0.9 K/mm3 (0.7-4.5); Lymphocytes % 36.3 % (10-50); Mean Corpuscular HGB Conc 33.5 g/dL (31.8-35.4); Mean Corpuscular Hemoglobin 30.3 pg (27.0-31.2); Mean Corpuscular Volume 90.4 fl (81-99); Monocytes # 0.1 K/mm3 (0.1-1.0); Monocytes % 2.9 % (1.7-9.3); Neutrophils # 1.3 K/mm3 (1.8-7.8); Neutrophils % 55.5 % (37.0-80.0); Platelet Count 172 K/mm3 (142-424); Red Blood Count 3.12 M/mm3 (4.20-5.40); Red Cell Distribution Width 16.6 % (11.5-17.5); White Blood Count 2.3 K/mm3 (4.8-10.8)
[2018-07-24 11:10] LABS: Alanine Aminotransferase 54 U/L (12-78); Albumin/Globulin Ratio 0.9 (1.1-1.8); Alkaline Phosphatase 113 U/L (46-116); Anion Gap 9.2 mEq/L (5-15); Aspartate Amino Transferase 23 U/L (15-37); Bilirubin,Total 0.3 mg/dL (0.2-1.0); Blood Urea Nitrogen 18 mg/dL (7-18); Calcium 9.2 mg/dL (8.5-10.1); Carbon Dioxide 30 mmol/L (21.0-32.0); Chloride 100 mmol/L (98-107); Creatinine Clearance Estimated 41 mL/min (50-200); Creatinine,Serum 0.75 mg/dL (0.55-1.02); Estimated Glomerular Filt Rate 75 ml/min (>60); GFR (African American) 91 ML/MIN (>60); Globulin 3.3 gm/dl (1.3-3.2); Glucose 129 mg/dL (74-106); Potassium 4.2 mmoL/L (3.5-5.1); Sodium 135 mmol/L (136-145); Total Protein,Serum 6.3 gm/dL (6.4-8.2)
[2018-07-25 10:54] LABS: CA 19-9 2713 U/mL (0-35)
== END 2018-07-24 14:50 | disposition home or self-care (01) ==
LOC: INF 10:39
PROVIDERS: Visit Provider Internal Medicine Medical Oncology
DX: Z51.11 Encounter for antineoplastic chemotherapy (principal); C25.9 Malignant neoplasm of pancreas, unspecified
CPT/HCPCS: 80053; 85025; 86316; 96413; 96415; 96417; J9201; J9264; Q0166

== ENCOUNTER → 2018-08-04 08:28 | Outpatient (CLI) | payer MEDICARE, SELFPAY ==
[2018-08-04 08:17] VITALS: BMI 21.7
--- NOTE | 2018-08-04 09:00 | CT_ITS ---
CT abdomen pelvis w con CLINICAL INDICATION: Follow-up metastatic pancreatic cancer ITS.REASON: PANCREATIC CA ORDERING PHYSICIAN: Amelia Tian MD PATIENT AGE: 77 years COMPARISON: None TECHNIQUE: Axial images obtained with sagittal and coronal reformats. All CT scans at the facility use one or more dose reduction, viz: automated exposure control, ma/kV adjustment per patient size (including targeted exams where dose is matched to indication, i.e. head), or iterative reconstruction technique. PROCEDURE: Oral Contrast: Redicat IV Contrast: 75 mL's Optiray 350 performed in conjunction with the chest CT. FINDINGS: There are 2 Isodense liver lesions are once again noted the largest measuring 2.5 x 2.4 cm containing a small central calcification not significantly changed. No new liver lesions are evident. The left adrenal gland is enlarged measuring 1.8 x 1.5 cm not significantly changed. Hypoattenuating mass once again noted involving the body of the pancreas which has somewhat decreased in size measuring 2.9 x 3.7 cm previously 3.8 x 4.2. Spleen, right adrenal gland, and kidneys have an unremarkable appearance. No intestinal obstruction or free air. No pelvic mass. Small amount of fluid is present in the pelvis. There is a small sclerotic focus involving the anterior aspect of the T11 vertebral body which has developed in the interval. A lucent lesion once again noted involving L1 vertebral body probably related to a hemangioma unchanged. A sclerotic focus involves right femoral neck unchanged and may be due to a bone island. There is a new area of mixed sclerosis and lucency along the right iliac crest for metastatic lesion not readily apparent on the previous exam. IMPRESSION: 1. No change in the hepatic and left adrenal metastasis. 2. The pancreatic mass appears slightly smaller. 3. There are 2 new bony lesions one along the right iliac crest measuring approximately 3 cm in width and 1 cm AP and another new sclerotic area at T11 suspicious for bony metastasis
--- NOTE | 2018-08-04 09:00 | CT_ITS ---
CT chest w con HISTORY: Follow-up pancreatic cancer ITS.REASON: PANCREATIC CANCER ORDERING PHYSICIAN: Amelia Tian MD PATIENT AGE: 77 years COMPARISON: 05/14/2018 TECHNIQUE: Axial images obtained following the administration of 75 mL of Optiray 350 . Sagittal, and coronal reformatted images are also generated and reviewed. All CT scans at the facility use one or more dose reduction, viz: automated exposure control, ma/kV adjustment per patient size (including targeted exams where dose is matched to indication, i.e. head), or iterative reconstruction technique. FINDINGS: The right lobe of the thyroid gland is enlarged with multiple nodules once again noted some which are partially calcified. This does not appear significantly changed. Mediastinal and right hilar adenopathy has shown some improvement. Precarinal lymph node measures 1.8 x 1.5 cm previously 2.9 x 1.6 cm. Right hilar node measures 0.8 cm previously 1.6 cm. Multiple small bilateral pulmonary nodules are once again noted. Medial these have slightly decreased in size. Some are unchanged. There is an area of ground glass consolidation in the right lower lobe superior segment. In the right posterior hilar region there is a slightly enlarged lymph node adjacent to this area of consolidation. This node has increased in size and measures 11 mm could be response to the underlying infection. There is mild diffuse bronchial thickening. There is a small right pleural effusion which is developed since the previous exam and trace left pleural effusion which is also developed since the previous exam. A new mixed lucent lesion with sclerotic margin is present involving the T7 vertebral body. There is a new sclerotic lesion involving the left aspect of the manubrium at 9 mm radiolucent lesion is present in the left manubrium at the first costal sternal junction at 7 mm unchanged. IMPRESSION: There is a mixed response noted to the metastatic disease. The mediastinal and hilar adenopathy has improved and numerous small pulmonary nodules have decreased in size while others are unchanged. One area of adenopathy in the right posterior hilar region has increased in volume. There is some alveolar consolidation in the superior segment of the right lower lobe adjacent to this lymph node. Small bilateral pleural effusions have developed A new mixed lytic and blastic lesion is present involving T7 and a new lesion is also present in the left aspect of the manubrium consistent with skeletal metastasis.
== END ==
PROVIDERS: PCP Internal Medicine Adolescent Medicine; Visit Provider Internal Medicine Medical Oncology
DX: C25.9 Malignant neoplasm of pancreas, unspecified (principal)
CPT/HCPCS: 71260; 74177; J1642; Q9967

== ENCOUNTER 2018-08-07 11:42 | Outpatient (CLI) | payer MEDICARE, SELFPAY ==
[2018-08-07 09:35] VITALS: BMI 21.7
[2018-08-07 10:23] LABS: Basophils % 0.6 % (0.1-2.0); Eosinophils # 0.3 K/mm3 (0.0-0.4); Eosinophils % 6.1 % (0.1-12.0); Hematocrit 30.4 % (37.0-47.0); Hemoglobin 9.6 g/dL (12.2-16.2); Mean Corpuscular HGB Conc 31.5 g/dL (31.8-35.4); Mean Corpuscular Hemoglobin 29.6 pg (27.0-31.2); Mean Corpuscular Volume 93.7 fl (81-99); Mean Platelet Volume 7.7 fl (7.4-10.4); Monocytes # 0.5 K/mm3 (0.1-1.0); Monocytes % 10.1 % (1.7-9.3); Neutrophils # 2.9 K/mm3 (1.8-7.8); Neutrophils % 61.3 % (37.0-80.0); Platelet Count 554 K/mm3 (142-424); Red Blood Count 3.24 M/mm3 (4.20-5.40); Red Cell Distribution Width 18.1 % (11.5-17.5); White Blood Count 4.7 K/mm3 (4.8-10.8)
[2018-08-07 10:32] LABS: Alanine Aminotransferase 36 U/L (12-78); Albumin/Globulin Ratio 0.9 (1.1-1.8); Alkaline Phosphatase 103 U/L (46-116); Anion Gap 11.2 mEq/L (5-15); Aspartate Amino Transferase 20 U/L (15-37); Bilirubin,Total 0.3 mg/dL (0.2-1.0); Blood Urea Nitrogen 20 mg/dL (7-18); Calcium 8.9 mg/dL (8.5-10.1); Carbon Dioxide 28 mmol/L (21.0-32.0); Chloride 102 mmol/L (98-107); Creatinine Clearance Estimated 42 mL/min (50-200); Creatinine,Serum 0.77 mg/dL (0.55-1.02); Estimated Glomerular Filt Rate 73 ml/min (>60); GFR (African American) 88 ML/MIN (>60); Globulin 3.3 gm/dl (1.3-3.2); Glucose 176 mg/dL (74-106); Potassium 4.2 mmoL/L (3.5-5.1); Sodium 137 mmol/L (136-145); Total Protein,Serum 6.3 gm/dL (6.4-8.2)
[2018-08-07 12:37] VITALS: BP 123/78; PULSE 69; RESP 18; TEMP 36.8; O2SAT 97
[2018-08-07 13:07] VITALS: BP 126/74; PULSE 71; RESP 18; O2SAT 96
[2018-08-07 13:37] VITALS: BP 128/77; PULSE 72; RESP 18; O2SAT 97
[2018-08-07 14:00] VITALS: BP 139/64; PULSE 71; RESP 18; O2SAT 97
== END 2018-08-07 14:05 | disposition home or self-care (01) ==
LOC: INF 11:42
PROVIDERS: Visit Provider Internal Medicine Medical Oncology
DX: Z51.11 Encounter for antineoplastic chemotherapy (principal); C25.9 Malignant neoplasm of pancreas, unspecified
CPT/HCPCS: 80053; 85025; 96413; 96417; J1642; J8501; J9201; J9264; Q0166

== ENCOUNTER 2018-08-13 11:05 | Outpatient (CLI) | payer MEDICARE, SELFPAY ==
[2018-08-13 11:12] VITALS: BMI 22.4
[2018-08-13 11:31] LABS: Basophils % 0.9 % (0.1-2.0); Eosinophils # 0.1 K/mm3 (0.0-0.4); Eosinophils % 3.3 % (0.1-12.0); Hematocrit 28.5 % (37.0-47.0); Hemoglobin 9.3 g/dL (12.2-16.2); Lymphocytes # 1.2 K/mm3 (0.7-4.5); Lymphocytes % 34.7 % (10-50); Mean Corpuscular HGB Conc 32.5 g/dL (31.8-35.4); Mean Corpuscular Hemoglobin 29.9 pg (27.0-31.2); Mean Platelet Volume 7.9 fl (7.4-10.4); Monocytes # 0.1 K/mm3 (0.1-1.0); Monocytes % 2.1 % (1.7-9.3); Neutrophils % 59.1 % (37.0-80.0); Platelet Count 651 K/mm3 (142-424); Red Blood Count 3.09 M/mm3 (4.20-5.40); Red Cell Distribution Width 17.3 % (11.5-17.5); White Blood Count 3.4 K/mm3 (4.8-10.8)
[2018-08-13 12:37] VITALS: BP 134/70; PULSE 74; RESP 18; TEMP 36.7; O2SAT 98
[2018-08-13 13:07] VITALS: BP 129/72; PULSE 76; RESP 18; O2SAT 97
[2018-08-13 13:37] VITALS: BP 131/71; PULSE 74; RESP 18; O2SAT 98
[2018-08-13 14:07] VITALS: BP 127/75; PULSE 71; RESP 18; O2SAT 97
[2018-08-13 14:25] VITALS: BP 130/70; PULSE 74; RESP 18; O2SAT 97
== END 2018-08-13 14:30 | disposition home or self-care (01) ==
LOC: INF 11:05
PROVIDERS: Visit Provider Internal Medicine Medical Oncology
DX: C25.9 Malignant neoplasm of pancreas, unspecified (principal)
CPT/HCPCS: 85025; 96413; 96417; J1642; J8501; J9201; J9264; Q0166

== ENCOUNTER 2018-08-21 09:01 | Outpatient (CLI) | payer MEDICARE, SELFPAY ==
[2018-08-21 09:03] VITALS: BMI 22.4
[2018-08-21 09:31] LABS: Basophils % 0.5 % (0.1-2.0); Eosinophils # 0.2 K/mm3 (0.0-0.4); Eosinophils % 4.6 % (0.1-12.0); Hemoglobin 9.2 g/dL (12.2-16.2); Lymphocytes # 0.9 K/mm3 (0.7-4.5); Lymphocytes % 29.7 % (10-50); Mean Corpuscular HGB Conc 31.6 g/dL (31.8-35.4); Mean Corpuscular Hemoglobin 29.5 pg (27.0-31.2); Mean Corpuscular Volume 93.4 fl (81-99); Mean Platelet Volume 7.8 fl (7.4-10.4); Monocytes # 0.1 K/mm3 (0.1-1.0); Monocytes % 3.9 % (1.7-9.3); Neutrophils # 1.9 K/mm3 (1.8-7.8); Neutrophils % 61.4 % (37.0-80.0); Platelet Count 174 K/mm3 (142-424); Red Cell Distribution Width 17.9 % (11.5-17.5); White Blood Count 3.2 K/mm3 (4.8-10.8)
[2018-08-21 09:39] LABS: Alanine Aminotransferase 68 U/L (12-78); Albumin Level 3.1 gm/dL (3.4-5.0); Alkaline Phosphatase 98 U/L (46-116); Anion Gap 11.9 mEq/L (5-15); Aspartate Amino Transferase 42 U/L (15-37); Bilirubin,Total 0.4 mg/dL (0.2-1.0); Blood Urea Nitrogen 15 mg/dL (7-18); Calcium 9.2 mg/dL (8.5-10.1); Carbon Dioxide 27 mmol/L (21.0-32.0); Chloride 104 mmol/L (98-107); Creatinine Clearance Estimated 44 mL/min (50-200); Creatinine,Serum 0.85 mg/dL (0.55-1.02); Estimated Glomerular Filt Rate 65 ml/min (>60); GFR (African American) 79 ML/MIN (>60); Globulin 3.2 gm/dl (1.3-3.2); Glucose 178 mg/dL (74-106); Potassium 3.9 mmoL/L (3.5-5.1); Sodium 139 mmol/L (136-145); Total Protein,Serum 6.3 gm/dL (6.4-8.2)
[2018-08-21 11:10] VITALS: BP 141/66; PULSE 71; RESP 18; TEMP 36.4; O2SAT 97
[2018-08-21 11:40] VITALS: BP 136/76; PULSE 76; RESP 18; O2SAT 98
[2018-08-21 12:10] VITALS: BP 139/69; PULSE 74; RESP 18; O2SAT 97
[2018-08-21 12:40] VITALS: BP 140/71; PULSE 75; RESP 18; O2SAT 98
[2018-08-21 12:50] VITALS: BP 144/71; PULSE 71; RESP 18; O2SAT 97
== END 2018-08-21 12:55 | disposition home or self-care (01) ==
LOC: INF 09:01
PROVIDERS: Visit Provider Internal Medicine Medical Oncology
DX: Z51.11 Encounter for antineoplastic chemotherapy (principal); C25.9 Malignant neoplasm of pancreas, unspecified
CPT/HCPCS: 80053; 85025; 96413; 96417; J8501; J9201; J9264; Q0166

== ENCOUNTER 2018-09-04 09:12 | Outpatient (CLI) | payer MEDICARE, SELFPAY ==
[2018-09-04 09:13] VITALS: BMI 21.9
[2018-09-04 09:42] LABS: Basophils % 0.5 % (0.1-2.0); Eosinophils # 0.2 K/mm3 (0.0-0.4); Eosinophils % 4.6 % (0.1-12.0); Hemoglobin 9.5 g/dL (12.2-16.2); Lymphocytes # 1.2 K/mm3 (0.7-4.5); Mean Corpuscular HGB Conc 31.7 g/dL (31.8-35.4); Mean Corpuscular Hemoglobin 30.2 pg (27.0-31.2); Mean Corpuscular Volume 95.1 fl (81-99); Mean Platelet Volume 8.1 fl (7.4-10.4); Monocytes # 0.4 K/mm3 (0.1-1.0); Monocytes % 9.4 % (1.7-9.3); Neutrophils # 2.5 K/mm3 (1.8-7.8); Neutrophils % 58.6 % (37.0-80.0); Platelet Count 468 K/mm3 (142-424); Red Blood Count 3.15 M/mm3 (4.20-5.40); Red Cell Distribution Width 18.2 % (11.5-17.5); White Blood Count 4.3 K/mm3 (4.8-10.8)
[2018-09-04 09:52] LABS: Alanine Aminotransferase 36 U/L (12-78); Albumin Level 3.1 gm/dL (3.4-5.0); Alkaline Phosphatase 93 U/L (46-116); Anion Gap 11.9 mEq/L (5-15); Aspartate Amino Transferase 20 U/L (15-37); Bilirubin,Total 0.3 mg/dL (0.2-1.0); Blood Urea Nitrogen 22 mg/dL (7-18); Calcium 8.8 mg/dL (8.5-10.1); Carbon Dioxide 27 mmol/L (21.0-32.0); Chloride 103 mmol/L (98-107); Creatinine Clearance Estimated 42 mL/min (50-200); Creatinine,Serum 0.83 mg/dL (0.55-1.02); Estimated Glomerular Filt Rate 67 ml/min (>60); GFR (African American) 81 ML/MIN (>60); Glucose 186 mg/dL (74-106); Potassium 3.9 mmoL/L (3.5-5.1); Sodium 138 mmol/L (136-145); Total Protein,Serum 6.1 gm/dL (6.4-8.2)
[2018-09-04 11:14] VITALS: BP 135/59; PULSE 76; RESP 18; TEMP 36.4; O2SAT 96
[2018-09-04 11:44] VITALS: BP 130/57; PULSE 74; RESP 18; O2SAT 97
[2018-09-04 12:14] VITALS: BP 131/62; PULSE 71; RESP 18; O2SAT 98
[2018-09-04 12:55] VITALS: BP 129/69; PULSE 72; RESP 18; O2SAT 97
== END 2018-09-04 13:00 | disposition home or self-care (01) ==
LOC: INF 09:12
PROVIDERS: Visit Provider Internal Medicine Medical Oncology
DX: Z51.11 Encounter for antineoplastic chemotherapy (principal); C25.9 Malignant neoplasm of pancreas, unspecified
CPT/HCPCS: 80053; 85025; 96413; 96417; J8501; J9201; J9264; Q0166

== ENCOUNTER → 2018-09-10 09:33 | Outpatient (CLI) | payer MEDICARE, SELFPAY ==
--- NOTE | 2018-09-10 09:35 | CT_ITS ---
CT head/brain wo/w con HISTORY: Pancreatic cancer, left arm weakness, left arm heaviness ITS.REASON: PANCREATIC CA ORDERING PHYSICIAN: Amelia Tian MD PATIENT AGE: 77 years COMPARISON: None TECHNIQUE: Axial images obtained without and with 100 mL Optiray 320 contrast. Brain and bone windows reviewed. All CT scans at the facility use one or more dose reduction, viz: automated exposure control, ma/kV adjustment per patient size (including targeted exams where dose is matched to indication, i.e. head), or iterative reconstruction technique. FINDINGS: No midline shift, mass effect, intracranial hemorrhage, hydrocephalus, or extra-axial fluid collection is evident. Hypoattenuation is present in the periventricular deep white matter consistent with ischemic gliotic change from microvascular disease. These areas do not demonstrate any contrast enhancement. No enhancing lesions are evident. No intra or extra-axial mass. No convincing evidence of metastatic disease no large acute infarctions evident. A small lucency is noted in the left basal ganglia region and may be due to a dilated perivascular space, an old lacunar infarction, or a choroidal fissure cyst. This is approximately 7 mm. The calvarium has an unremarkable appearance. No mastoid effusion. No sinus air-fluid levels.. IMPRESSION: 1. No acute intracranial findings. 2. No evidence of metastatic disease
--- NOTE | 2018-09-10 10:08 | HMH.ITSHM ---
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 []OMEPRAZOLE MAG 20 MG TABLET DAILY MULTIVITAMIN 1 TAB PO DAILY METOPROLOL TARTRATE 25MG PO BID MELATONIN 5MG PO DAILY BENZONATATE 100MG PO TID ATORVASTATIN 20 MG PS HS ASPIRIN 81 MG TABLET PO ONCE ALBUTEROL SULFATE HFA 90 MCG AEROSOL PRN ONDANSETRON 4 MG PO Q8HP PRN ESTROGN, CONJUGATED 1 BG WEEKLY
== END ==
PROVIDERS: PCP Internal Medicine Adolescent Medicine; Visit Provider Internal Medicine Medical Oncology
DX: C25.9 Malignant neoplasm of pancreas, unspecified (principal)
CPT/HCPCS: 70470; J1642; Q9967

== ENCOUNTER 2018-09-11 10:03 | Outpatient (CLI) | payer MEDICARE, SELFPAY ==
[2018-09-11 10:09] VITALS: BMI 22.4
[2018-09-11 10:32] LABS: Basophils % 0.6 % (0.1-2.0); Eosinophils # 0.1 K/mm3 (0.0-0.4); Eosinophils % 2.5 % (0.1-12.0); Hematocrit 28.8 % (37.0-47.0); Hemoglobin 9.2 g/dL (12.2-16.2); Lymphocytes # 0.9 K/mm3 (0.7-4.5); Lymphocytes % 32.2 % (10-50); Mean Corpuscular HGB Conc 31.8 g/dL (31.8-35.4); Mean Corpuscular Hemoglobin 29.8 pg (27.0-31.2); Mean Corpuscular Volume 93.5 fl (81-99); Monocytes # 0.1 K/mm3 (0.1-1.0); Neutrophils # 1.7 K/mm3 (1.8-7.8); Neutrophils % 59.8 % (37.0-80.0); Platelet Count 541 K/mm3 (142-424); Red Blood Count 3.08 M/mm3 (4.20-5.40); Red Cell Distribution Width 17.7 % (11.5-17.5); White Blood Count 2.9 K/mm3 (4.8-10.8)
[2018-09-11 11:22] VITALS: BP 150/75; PULSE 78; RESP 20; TEMP 36.4; O2SAT 98
[2018-09-11 11:52] VITALS: BP 149/71; PULSE 76; RESP 20; O2SAT 97
[2018-09-11 12:22] VITALS: BP 149/72; PULSE 74; RESP 20; O2SAT 98
[2018-09-11 12:52] VITALS: BP 151/79; PULSE 78; RESP 20; O2SAT 98
[2018-09-11 13:00] VITALS: BP 150/78; PULSE 74; RESP 20; O2SAT 98
== END 2018-09-11 13:05 | disposition home or self-care (01) ==
LOC: INF 10:03
PROVIDERS: Visit Provider Internal Medicine Medical Oncology
DX: Z51.11 Encounter for antineoplastic chemotherapy (principal); C25.9 Malignant neoplasm of pancreas, unspecified
CPT/HCPCS: 85025; 96413; 96417; J9201; J9264; Q0166

== ENCOUNTER → 2018-09-18 08:48 | Outpatient (CLI) | payer MEDICARE, SELFPAY ==
[2018-09-18 08:51] VITALS: BMI 21.7
[2018-09-18 09:24] LABS: Basophils % 0.9 % (0.1-2.0); Eosinophils % 2.2 % (0.1-12.0); Hematocrit 28.3 % (37.0-47.0); Hemoglobin 9.2 g/dL (12.2-16.2); Lymphocytes # 0.9 K/mm3 (0.7-4.5); Lymphocytes % 48.4 % (10-50); Mean Corpuscular HGB Conc 32.4 g/dL (31.8-35.4); Mean Corpuscular Hemoglobin 30.1 pg (27.0-31.2); Mean Corpuscular Volume 92.8 fl (81-99); Mean Platelet Volume 7.4 fl (7.4-10.4); Monocytes # 0.1 K/mm3 (0.1-1.0); Monocytes % 3.5 % (1.7-9.3); Neutrophils # 0.8 K/mm3 (1.8-7.8); Platelet Count 217 K/mm3 (142-424); Red Blood Count 3.05 M/mm3 (4.20-5.40); Red Cell Distribution Width 17.6 % (11.5-17.5); White Blood Count 1.8 K/mm3 (4.8-10.8)
--- NOTE | 2018-09-18 10:20 | XR_ITS ---
XR humerus LT CLINICAL INDICATION: ITS.REASON: LT HAND NUMBNESS,TINGLING ORDERING PHYSICIAN: Amelia Tian MD PATIENT AGE: 77 years Comparison: None FINDINGS: There is mild subacromial stenosis with mild downsloping of the distal aspect of the acromion. The uterus has an unremarkable appearance. IMPRESSION: Subacromial stenosis otherwise negative
[2018-09-19 23:13] LABS: CA 19-9 285 U/mL (0-35)
== END ==
PROVIDERS: Visit Provider Internal Medicine Medical Oncology
DX: C25.9 Malignant neoplasm of pancreas, unspecified (principal)
CPT/HCPCS: 73060; 85025; 86316; J1642

== ENCOUNTER 2018-09-25 09:22 | Outpatient (CLI) | payer MEDICARE, SELFPAY ==
[2018-09-25 09:25] VITALS: BMI 21.7
[2018-09-25 09:42] LABS: Basophils # 0.1 K/mm3 (0-0.2); Basophils % 0.5 % (0.1-2.0); Eosinophils # 0.3 K/mm3 (0.0-0.4); Eosinophils % 3.3 % (0.1-12.0); Hematocrit 30.7 % (37.0-47.0); Hemoglobin 9.8 g/dL (12.2-16.2); Lymphocytes # 1.3 K/mm3 (0.7-4.5); Lymphocytes % 13.7 % (10-50); Mean Corpuscular HGB Conc 32.1 g/dL (31.8-35.4); Mean Corpuscular Hemoglobin 30.6 pg (27.0-31.2); Mean Corpuscular Volume 95.3 fl (81-99); Mean Platelet Volume 7.7 fl (7.4-10.4); Monocytes # 0.5 K/mm3 (0.1-1.0); Monocytes % 5.3 % (1.7-9.3); Neutrophils # 7.2 K/mm3 (1.8-7.8); Neutrophils % 77.2 % (37.0-80.0); Platelet Count 334 K/mm3 (142-424); Red Blood Count 3.22 M/mm3 (4.20-5.40); Red Cell Distribution Width 17.6 % (11.5-17.5); White Blood Count 9.3 K/mm3 (4.8-10.8)
[2018-09-25 11:00] VITALS: BP 131/88; PULSE 72; RESP 18; TEMP 36.4; O2SAT 100
[2018-09-25 11:30] VITALS: BP 138/65; PULSE 71; RESP 18; O2SAT 98
[2018-09-25 12:00] VITALS: BP 130/69; PULSE 76; RESP 18; O2SAT 99
[2018-09-25 12:30] VITALS: BP 132/65; PULSE 75; RESP 18; O2SAT 98
[2018-09-25 12:40] VITALS: BP 133/67; PULSE 70; RESP 18; O2SAT 99
== END 2018-09-25 12:40 | disposition home or self-care (01) ==
LOC: INF 09:22
PROVIDERS: Visit Provider Internal Medicine Medical Oncology
DX: Z51.11 Encounter for antineoplastic chemotherapy (principal); C25.9 Malignant neoplasm of pancreas, unspecified
CPT/HCPCS: 85025; 96413; 96417; J8501; J9201; J9264; Q0166

== ENCOUNTER 2018-10-23 08:23 | Outpatient (CLI) | payer MEDICARE, SELFPAY ==
[2018-10-23 08:26] VITALS: BMI 21.2
[2018-10-23 08:59] LABS: Basophils # 0.1 K/mm3 (0-0.2); Basophils % 1.1 % (0.1-2.0); Eosinophils # 0.3 K/mm3 (0.0-0.4); Eosinophils % 3.6 % (0.1-12.0); Hemoglobin 10.8 g/dL (12.2-16.2); Lymphocytes # 1.7 K/mm3 (0.7-4.5); Lymphocytes % 22.5 % (10-50); Mean Corpuscular HGB Conc 31.9 g/dL (31.8-35.4); Mean Corpuscular Hemoglobin 29.2 pg (27.0-31.2); Mean Corpuscular Volume 91.5 fl (81-99); Mean Platelet Volume 7.3 fl (7.4-10.4); Monocytes # 0.5 K/mm3 (0.1-1.0); Monocytes % 6.3 % (1.7-9.3); Neutrophils # 4.9 K/mm3 (1.8-7.8); Neutrophils % 66.5 % (37.0-80.0); Platelet Count 391 K/mm3 (142-424); Red Blood Count 3.72 M/mm3 (4.20-5.40); Red Cell Distribution Width 16.1 % (11.5-17.5); White Blood Count 7.3 K/mm3 (4.8-10.8)
[2018-10-23 09:13] LABS: Alanine Aminotransferase 16 U/L (12-78); Albumin/Globulin Ratio 0.9 (1.1-1.8); Alkaline Phosphatase 96 U/L (46-116); Aspartate Amino Transferase 11 U/L (15-37); Bilirubin,Total 0.4 mg/dL (0.2-1.0); Blood Urea Nitrogen 23 mg/dL (7-18); Calcium 8.8 mg/dL (8.5-10.1); Carbon Dioxide 28 mmol/L (21.0-32.0); Chloride 100 mmol/L (98-107); Creatinine Clearance Estimated 41 mL/min (50-200); Creatinine,Serum 0.88 mg/dL (0.55-1.02); Estimated Glomerular Filt Rate 62 ml/min (>60); GFR (African American) 76 ML/MIN (>60); Globulin 3.5 gm/dl (1.3-3.2); Glucose 193 mg/dL (74-106); Sodium 137 mmol/L (136-145); Total Protein,Serum 6.5 gm/dL (6.4-8.2)
[2018-10-23 10:59] VITALS: BP 133/58; PULSE 74; RESP 18; TEMP 36.4; O2SAT 98
[2018-10-23 11:29] VITALS: BP 138/61; PULSE 72; RESP 18; O2SAT 97
[2018-10-23 11:59] VITALS: BP 122/58; PULSE 74; RESP 18; O2SAT 99
[2018-10-23 12:29] VITALS: BP 126/59; PULSE 76; RESP 18; O2SAT 99
== END 2018-10-23 12:29 | disposition home or self-care (01) ==
LOC: INF 08:23
PROVIDERS: Visit Provider Internal Medicine Medical Oncology
DX: C25.9 Malignant neoplasm of pancreas, unspecified (principal)
CPT/HCPCS: 80053; 85025; 96413; 96417; J8501; J9201; J9264; Q0166

== ENCOUNTER 2018-10-29 13:04 | Outpatient (CLI) | payer MEDICARE, SELFPAY ==
[2018-10-29 13:06] VITALS: BMI 22.3
[2018-10-29 13:25] LABS: Basophils % 0.6 % (0.1-2.0); Eosinophils # 0.2 K/mm3 (0.0-0.4); Eosinophils % 5.4 % (0.1-12.0); Hematocrit 30.3 % (37.0-47.0); Lymphocytes # 1.6 K/mm3 (0.7-4.5); Lymphocytes % 35.1 % (10-50); Mean Corpuscular HGB Conc 32.9 g/dL (31.8-35.4); Mean Corpuscular Hemoglobin 29.2 pg (27.0-31.2); Mean Corpuscular Volume 88.8 fl (81-99); Monocytes # 0.1 K/mm3 (0.1-1.0); Monocytes % 1.4 % (1.7-9.3); Neutrophils # 2.5 K/mm3 (1.8-7.8); Neutrophils % 57.4 % (37.0-80.0); Platelet Count 288 K/mm3 (142-424); Red Blood Count 3.41 M/mm3 (4.20-5.40); Red Cell Distribution Width 15.9 % (11.5-17.5); White Blood Count 4.4 K/mm3 (4.8-10.8)
[2018-10-29 14:15] VITALS: BP 137/76; PULSE 76; RESP 18; TEMP 36.6; O2SAT 97
[2018-10-29 14:45] VITALS: BP 145/78; PULSE 79; RESP 18; O2SAT 98
[2018-10-29 15:15] VITALS: BP 149/72; PULSE 76; RESP 18; O2SAT 97
[2018-10-29 15:40] VITALS: BP 157/86; PULSE 74; RESP 18; O2SAT 98
== END 2018-10-29 15:40 | disposition home or self-care (01) ==
LOC: INF 13:05
PROVIDERS: Visit Provider Internal Medicine Medical Oncology
DX: C25.9 Malignant neoplasm of pancreas, unspecified (principal); Z51.11 Encounter for antineoplastic chemotherapy
CPT/HCPCS: 85025; 96413; 96417; J8501; J9201; J9264; Q0166

== ENCOUNTER 2018-11-13 08:16 | Outpatient (CLI) | payer MEDICARE, SELFPAY ==
[2018-11-13 08:27] VITALS: BMI 21.6
[2018-11-13 08:54] LABS: Basophils % 0.9 % (0.1-2.0); Eosinophils # 0.2 K/mm3 (0.0-0.4); Eosinophils % 6.1 % (0.1-12.0); Hematocrit 35.3 % (37.0-47.0); Hemoglobin 10.6 g/dL (12.2-16.2); Lymphocytes % 27.3 % (10-50); Mean Corpuscular Hemoglobin 27.5 pg (27.0-31.2); Mean Corpuscular Volume 91.7 fl (81-99); Mean Platelet Volume 7.8 fl (7.4-10.4); Monocytes # 0.3 K/mm3 (0.1-1.0); Monocytes % 7.2 % (1.7-9.3); Neutrophils # 2.1 K/mm3 (1.8-7.8); Neutrophils % 58.4 % (37.0-80.0); Platelet Count 554 K/mm3 (142-424); Red Blood Count 3.85 M/mm3 (4.20-5.40); Red Cell Distribution Width 17.1 % (11.5-17.5); White Blood Count 3.7 K/mm3 (4.8-10.8)
[2018-11-13 09:10] LABS: Alanine Aminotransferase 24 U/L (12-78); Albumin/Globulin Ratio 0.9 (1.1-1.8); Alkaline Phosphatase 114 U/L (46-116); Anion Gap 9.9 mEq/L (5-15); Aspartate Amino Transferase 16 U/L (15-37); Bilirubin,Total 0.2 mg/dL (0.2-1.0); Blood Urea Nitrogen 22 mg/dL (7-18); Calcium 8.9 mg/dL (8.5-10.1); Carbon Dioxide 28 mmol/L (21.0-32.0); Chloride 103 mmol/L (98-107); Chol/HDL Ratio 2.7 (1-3.5); Cholesterol 148 mg/dL (140-200); Creatinine Clearance Estimated 42 mL/min (50-200); Creatinine,Serum 0.78 mg/dL (0.55-1.02); Estimated Glomerular Filt Rate 72 ml/min (>60); GFR (African American) 87 ML/MIN (>60); Globulin 3.4 gm/dl (1.3-3.2); Glucose 128 mg/dL (74-106); HDL Cholesterol 55 mg/dL (29-89); LDL Cholesterol 71 mg/dL (0-130); Potassium 3.9 mmoL/L (3.5-5.1); Sodium 137 mmol/L (136-145); Total Protein,Serum 6.4 gm/dL (6.4-8.2); Triglycerides 110 mg/dL (30-200); VLDL Cholesterol 22 mg/dL (0-40)
[2018-11-13 10:31] VITALS: BP 135/76; PULSE 71; RESP 18; TEMP 36.6; O2SAT 98
[2018-11-13 11:01] VITALS: BP 130/77; PULSE 71; RESP 18; O2SAT 97
[2018-11-13 11:31] VITALS: BP 134/70; PULSE 74; RESP 18; O2SAT 98
[2018-11-13 12:00] VITALS: BP 136/76; PULSE 76; RESP 18; O2SAT 97
== END 2018-11-13 12:00 | disposition home or self-care (01) ==
LOC: INF 08:17
PROVIDERS: Visit Provider Internal Medicine Medical Oncology
DX: Z51.11 Encounter for antineoplastic chemotherapy (principal); C25.9 Malignant neoplasm of pancreas, unspecified; Z79.899 Other long term (current) drug therapy
CPT/HCPCS: 80053; 80061; 85025; 96413; 96417; J8501; J9201; J9264; Q0166

== ENCOUNTER 2018-11-21 11:20 | Outpatient (CLI) | payer MEDICARE, SELFPAY ==
[2018-11-21 11:20] VITALS: BMI 22.3
[2018-11-21 11:48] LABS: Basophils % 0.5 % (0.1-2.0); Eosinophils # 0.3 K/mm3 (0.0-0.4); Eosinophils % 4.4 % (0.1-12.0); Hematocrit 31.7 % (37.0-47.0); Hemoglobin 9.5 g/dL (12.2-16.2); Lymphocytes # 1.5 K/mm3 (0.7-4.5); Lymphocytes % 26.8 % (10-50); Mean Corpuscular HGB Conc 30.1 g/dL (31.8-35.4); Mean Corpuscular Hemoglobin 26.2 pg (27.0-31.2); Mean Corpuscular Volume 87.1 fl (81-99); Mean Platelet Volume 7.1 fl (7.4-10.4); Monocytes # 0.3 K/mm3 (0.1-1.0); Neutrophils # 3.5 K/mm3 (1.8-7.8); Neutrophils % 62.2 % (37.0-80.0); Platelet Count 445 K/mm3 (142-424); Red Blood Count 3.64 M/mm3 (4.20-5.40); Red Cell Distribution Width 16.4 % (11.5-17.5); White Blood Count 5.7 K/mm3 (4.8-10.8)
[2018-11-21 13:10] VITALS: BP 127/76; PULSE 72; RESP 20; TEMP 36.9; O2SAT 95
[2018-11-21 13:45] VITALS: BP 126/74; PULSE 68; RESP 20; TEMP 36.9; O2SAT 95
[2018-11-21 14:15] VITALS: BP 124/74; PULSE 78; RESP 20; TEMP 36.9; O2SAT 95
[2018-11-21 14:20] VITALS: BP 122/74; PULSE 74; RESP 18; TEMP 36.9; O2SAT 95
== END 2018-11-21 14:20 | disposition home or self-care (01) ==
LOC: INF 11:21
PROVIDERS: Visit Provider Internal Medicine Medical Oncology
DX: Z51.11 Encounter for antineoplastic chemotherapy (principal); C25.9 Malignant neoplasm of pancreas, unspecified
CPT/HCPCS: 85025; 96413; 96417; J9201; J9264; Q0166

== ENCOUNTER 2018-11-26 08:59 | Outpatient (CLI) | payer MEDICARE, SELFPAY ==
[2018-11-26 09:03] VITALS: BMI 21.6
[2018-11-26 09:35] LABS: Basophils % 0.4 % (0.1-2.0); Eosinophils # 0.3 K/mm3 (0.0-0.4); Hematocrit 31.5 % (37.0-47.0); Hemoglobin 9.6 g/dL (12.2-16.2); Lymphocytes % 19.2 % (10-50); Mean Corpuscular HGB Conc 30.5 g/dL (31.8-35.4); Mean Corpuscular Hemoglobin 27.9 pg (27.0-31.2); Mean Corpuscular Volume 91.4 fl (81-99); Mean Platelet Volume 8.1 fl (7.4-10.4); Monocytes # 0.1 K/mm3 (0.1-1.0); Neutrophils # 3.9 K/mm3 (1.8-7.8); Neutrophils % 74.4 % (37.0-80.0); Platelet Count 231 K/mm3 (142-424); Red Blood Count 3.45 M/mm3 (4.20-5.40); Red Cell Distribution Width 17.4 % (11.5-17.5); White Blood Count 5.2 K/mm3 (4.8-10.8)
[2018-11-27 19:15] LABS: CA 19-9 961 U/mL (0-35)
== END 2018-11-26 09:20 | disposition home or self-care (01) ==
LOC: INF 08:59
PROVIDERS: Visit Provider Internal Medicine Hematology & Oncology
DX: C25.9 Malignant neoplasm of pancreas, unspecified (principal); Z45.2 Encounter for adjustment and management of vascular access device
CPT/HCPCS: 85025; 86316; J1642

== ENCOUNTER 2018-12-11 08:00 | Outpatient (CLI) | payer MEDICARE, SELFPAY ==
[2018-12-11] VITALS (8 sets, daily range): BP systolic 130–162; BP diastolic 50–67; PULSE 69–76; RESP 18; TEMP 36.6; O2SAT 97; BMI 21.7
[2018-12-11 08:49] LABS: Basophils % 0.5 % (0.1-2.0); Eosinophils # 0.3 K/mm3 (0.0-0.4); Eosinophils % 4.5 % (0.1-12.0); Hematocrit 35.9 % (37.0-47.0); Hemoglobin 10.7 g/dL (12.2-16.2); Lymphocytes # 1.9 K/mm3 (0.7-4.5); Lymphocytes % 25.7 % (10-50); Mean Corpuscular HGB Conc 29.8 g/dL (31.8-35.4); Mean Corpuscular Hemoglobin 27.5 pg (27.0-31.2); Mean Corpuscular Volume 92.3 fl (81-99); Mean Platelet Volume 7.3 fl (7.4-10.4); Monocytes # 0.4 K/mm3 (0.1-1.0); Monocytes % 5.7 % (1.7-9.3); Neutrophils # 4.7 K/mm3 (1.8-7.8); Neutrophils % 63.7 % (37.0-80.0); Platelet Count 546 K/mm3 (142-424); Red Blood Count 3.89 M/mm3 (4.20-5.40); Red Cell Distribution Width 18.1 % (11.5-17.5); White Blood Count 7.4 K/mm3 (4.8-10.8)
[2018-12-11 09:04] LABS: Alanine Aminotransferase 22 U/L (12-78); Albumin/Globulin Ratio 0.9 (1.1-1.8); Alkaline Phosphatase 128 U/L (46-116); Anion Gap 8.3 mEq/L (5-15); Aspartate Amino Transferase 16 U/L (15-37); Bilirubin,Total 0.3 mg/dL (0.2-1.0); Blood Urea Nitrogen 25 mg/dL (7-18); Calcium 9.3 mg/dL (8.5-10.1); Carbon Dioxide 30 mmol/L (21.0-32.0); Chloride 100 mmol/L (98-107); Creatinine Clearance Estimated 41 mL/min (50-200); Creatinine,Serum 0.84 mg/dL (0.55-1.02); Estimated Glomerular Filt Rate 66 ml/min (>60); GFR (African American) 80 ML/MIN (>60); Globulin 3.5 gm/dl (1.3-3.2); Glucose 111 mg/dL (74-106); Potassium 4.3 mmoL/L (3.5-5.1); Sodium 134 mmol/L (136-145); Total Protein,Serum 6.5 gm/dL (6.4-8.2)
== END 2018-12-11 12:05 | disposition home or self-care (01) ==
LOC: INF 08:13
PROVIDERS: Visit Provider Internal Medicine Medical Oncology
DX: C25.9 Malignant neoplasm of pancreas, unspecified (principal)
CPT/HCPCS: 80053; 85025; 96413; 96415; 96417; J8501; J9201; J9264; Q0166

== ENCOUNTER 2018-12-16 11:14 | Outpatient (CLI) | payer MEDICARE, SELFPAY ==
[2018-12-16 10:45] VITALS: BMI 21.6
[2018-12-16 11:02] LABS: Basophils % 0.4 % (0.1-2.0); Eosinophils # 0.3 K/mm3 (0.0-0.4); Eosinophils % 4.1 % (0.1-12.0); Hematocrit 34.1 % (37.0-47.0); Hemoglobin 10.2 g/dL (12.2-16.2); Lymphocytes # 1.5 K/mm3 (0.7-4.5); Lymphocytes % 21.8 % (10-50); Mean Corpuscular Volume 86.7 fl (81-99); Mean Platelet Volume 7.5 fl (7.4-10.4); Monocytes # 0.1 K/mm3 (0.1-1.0); Monocytes % 1.9 % (1.7-9.3); Neutrophils # 4.9 K/mm3 (1.8-7.8); Neutrophils % 71.9 % (37.0-80.0); Platelet Count 418 K/mm3 (142-424); Red Blood Count 3.93 M/mm3 (4.20-5.40); Red Cell Distribution Width 17.5 % (11.5-17.5); White Blood Count 6.8 K/mm3 (4.8-10.8)
[2018-12-16 11:31] LABS: Alanine Aminotransferase 37 U/L (12-78); Albumin Level 3.1 gm/dL (3.4-5.0); Albumin/Globulin Ratio 0.8 (1.1-1.8); Alkaline Phosphatase 120 U/L (46-116); Anion Gap 12.5 mEq/L (5-15); Aspartate Amino Transferase 26 U/L (15-37); Bilirubin,Total 0.4 mg/dL (0.2-1.0); Blood Urea Nitrogen 30 mg/dL (7-18); Calcium 9.1 mg/dL (8.5-10.1); Carbon Dioxide 29 mmol/L (21.0-32.0); Chloride 99 mmol/L (98-107); Creatinine Clearance Estimated 41 mL/min (50-200); Creatinine,Serum 0.81 mg/dL (0.55-1.02); Estimated Glomerular Filt Rate 69 ml/min (>60); GFR (African American) 83 ML/MIN (>60); Globulin 3.7 gm/dl (1.3-3.2); Glucose 132 mg/dL (74-106); Potassium 4.5 mmoL/L (3.5-5.1); Sodium 136 mmol/L (136-145); Total Protein,Serum 6.8 gm/dL (6.4-8.2)
--- NOTE | 2018-12-16 11:52 | CT_ITS ---
CT chest wo/w con HISTORY: Pancreatic cancer, evaluate for metastasis ITS.REASON: PANCREATIC CANCER ORDERING PHYSICIAN: Amelia Tian MD PATIENT AGE: 78 years COMPARISON: 10/07/2018 Technique: Contrast Used:75ml Optiray 350 Axial images were obtained without and with contrast. Sagittal, and coronal reformatted images are also generated and reviewed. All CT scans at the facility use one or more dose reduction, viz: automated exposure control, ma/kV adjustment per patient size (including targeted exams where dose is matched to indication, i.e. head), or iterative reconstruction technique. FINDINGS: Partially calcified mass once again noted involving the right lobe of the thyroid gland probably not significant change compared to 05/14/2018. Pacemaker is present. No mediastinal or hilar mass or adenopathy is apparent. There are numerous noncalcified pulmonary nodules in both lungs some of which show central cavitation. The nodules do not appear significant change considering the difference in technique. Previously noted small right effusion is no longer apparent. Scattered bony metastasis do not appear significantly changed. IMPRESSION: Overall no significant change in the multiple pulmonary nodules and bony metastasis No change right thyroid mass
--- NOTE | 2018-12-16 11:52 | CT_ITS ---
CT abdomen pelvis wo/w con CLINICAL INDICATION: Follow-up metastatic pancreatic cancer ITS.REASON: PANCREATIC CANCER ORDERING PHYSICIAN: Amelia Tian MD PATIENT AGE: 78 years COMPARISON: 08/04/2018 TECHNIQUE: Contrast Used:75ml Optiray 350 Oral Contrast: 450ml Redicat Axial images obtained without a with contrast with delayed images and with sagittal and coronal reformats. All CT scans at the facility use one or more dose reduction, viz: automated exposure control, ma/kV adjustment per patient size (including targeted exams where dose is matched to indication, i.e. head), or iterative reconstruction technique. FINDINGS: There is mild thickening of the pericardium anteriorly suggesting small pericardial effusion measuring up to 9 mm in thickness. No change in the hypodense lesion in the right hepatic lobe that 2.5 x 2.5 cm containing a central calcification superiorly with an adjacent area of slight decreased attenuation at 8 mm. There is a 7 mm isodensity in the hepatic dome centrally not readily apparent previously and one in the left hepatic lobe laterally in the subcapsular region may been present previously but somewhat more prominent on today's exam. 7 mm isodense is present in the right hepatic lobe on image #17 similar to the previous exam there is an additional 4 mm isodensity in the left hepatic lobe centrally not readily apparent on the previous study. An additional lesion is noted in the right hepatic lobe anteriorly on image #31 measuring 4 mm unchanged. Spleen is unremarkable. Left adrenal mass is somewhat smaller at 13 x 10 mm previously 15 x 18 mm. The pancreatic mass has decreased in size and is barely perceptible measuring approximately 1 cm previously 3.7 x 2.9 cm. No renal or ureteral calculi or process. No intestinal obstruction or free air. No evidence of appendicitis or diverticulitis. A blastic lesion is present in the T11 and T12 vertebral bodies. The blastic lesion in the right iliac weaning is unchanged. IMPRESSION: There has been an overall mixed response. The primary pancreatic mass and left adrenal mass have both decreased in size. There are a few new hepatic lesions and a new blastic lesion at T11 and T12 vertebral body.
== END 2018-12-16 12:10 | disposition home or self-care (01) ==
LOC: RAD 11:14 → INF 12:33
PROVIDERS: PCP Internal Medicine Adolescent Medicine; Visit Provider Internal Medicine Medical Oncology
DX: C25.9 Malignant neoplasm of pancreas, unspecified (principal); Z45.2 Encounter for adjustment and management of vascular access device
CPT/HCPCS: 71270; 74178; 80053; 85025; J1642; Q9967

== ENCOUNTER 2018-12-17 10:11 | Outpatient (CLI) | payer MEDICARE, SELFPAY ==
[2018-12-17 11:19] VITALS: BP 131/70; PULSE 74; RESP 18; TEMP 36.6; O2SAT 98
[2018-12-17 11:49] VITALS: BP 133/69; PULSE 79; RESP 18; O2SAT 98
[2018-12-17 12:19] VITALS: BP 136/72; PULSE 75; RESP 18; O2SAT 98
[2018-12-17 12:50] VITALS: BP 135/78; PULSE 72; RESP 18; O2SAT 98
== END 2018-12-17 12:50 | disposition home or self-care (01) ==
LOC: INF 10:11
PROVIDERS: Visit Provider Internal Medicine Medical Oncology
DX: Z51.11 Encounter for antineoplastic chemotherapy (principal); C25.9 Malignant neoplasm of pancreas, unspecified
CPT/HCPCS: 96413; 96417; J9201; J9264; Q0166

== ENCOUNTER 2019-01-01 08:16 | Outpatient (CLI) | payer MEDICARE, SELFPAY ==
[2019-01-01 08:18] VITALS: BMI 22.1
[2019-01-01 08:40] LABS: Basophils % 0.6 % (0.1-2.0); Eosinophils # 0.2 K/mm3 (0.0-0.4); Eosinophils % 4.9 % (0.1-12.0); Hematocrit 32.4 % (37.0-47.0); Hemoglobin 10.1 g/dL (12.2-16.2); Lymphocytes # 1.4 K/mm3 (0.7-4.5); Lymphocytes % 28.3 % (10-50); Mean Corpuscular Hemoglobin 27.8 pg (27.0-31.2); Mean Corpuscular Volume 89.6 fl (81-99); Mean Platelet Volume 8.2 fl (7.4-10.4); Monocytes # 0.4 K/mm3 (0.1-1.0); Monocytes % 8.1 % (1.7-9.3); Neutrophils # 2.9 K/mm3 (1.8-7.8); Neutrophils % 58.2 % (37.0-80.0); Platelet Count 654 K/mm3 (142-424); Red Blood Count 3.62 M/mm3 (4.20-5.40); Red Cell Distribution Width 18.8 % (11.5-17.5)
[2019-01-01 08:49] LABS: Alanine Aminotransferase 24 U/L (12-78); Albumin/Globulin Ratio 0.9 (1.1-1.8); Alkaline Phosphatase 138 U/L (46-116); Anion Gap 12.2 mEq/L (5-15); Aspartate Amino Transferase 12 U/L (15-37); Bilirubin,Total 0.3 mg/dL (0.2-1.0); Blood Urea Nitrogen 23 mg/dL (7-18); Calcium 8.8 mg/dL (8.5-10.1); Carbon Dioxide 29 mmol/L (21.0-32.0); Chloride 101 mmol/L (98-107); Creatinine Clearance Estimated 42 mL/min (50-200); Creatinine,Serum 0.95 mg/dL (0.55-1.02); Estimated Glomerular Filt Rate 57 ml/min (>60); GFR (African American) 69 ML/MIN (>60); Globulin 3.4 gm/dl (1.3-3.2); Glucose 176 mg/dL (74-106); Potassium 4.2 mmoL/L (3.5-5.1); Sodium 138 mmol/L (136-145); Total Protein,Serum 6.4 gm/dL (6.4-8.2)
[2019-01-01 10:36] VITALS: BP 129/59; PULSE 74; RESP 18; TEMP 36.4; O2SAT 98
[2019-01-01 11:06] VITALS: BP 131/57; PULSE 78; RESP 18; O2SAT 97
[2019-01-01 11:36] VITALS: BP 136/61; PULSE 77; RESP 18; O2SAT 98
[2019-01-01 12:06] VITALS: BP 143/66; PULSE 76; RESP 18; O2SAT 98
[2019-01-01 12:15] VITALS: BP 149/79; PULSE 75; RESP 18; O2SAT 99
[2019-01-03 18:46] LABS: CA 19-9 1342 U/mL (0-35)
== END 2019-01-01 12:15 | disposition home or self-care (01) ==
LOC: INF 08:16
PROVIDERS: Visit Provider Internal Medicine Medical Oncology
DX: C25.9 Malignant neoplasm of pancreas, unspecified (principal)
CPT/HCPCS: 80053; 85025; 86316; 96413; 96417; J8501; J9201; J9264; Q0166

== ENCOUNTER 2019-01-07 09:55 | Outpatient (CLI) | payer MEDICARE, SELFPAY ==
[2019-01-07 10:05] VITALS: BMI 22.5
[2019-01-07 10:21] LABS: Basophils % 0.8 % (0.1-2.0); Eosinophils # 0.1 K/mm3 (0.0-0.4); Eosinophils % 2.6 % (0.1-12.0); Hematocrit 30.9 % (37.0-47.0); Hemoglobin 9.8 g/dL (12.2-16.2); Lymphocytes # 1.3 K/mm3 (0.7-4.5); Lymphocytes % 44.2 % (10-50); Mean Corpuscular HGB Conc 31.8 g/dL (31.8-35.4); Mean Corpuscular Hemoglobin 28.1 pg (27.0-31.2); Mean Corpuscular Volume 88.3 fl (81-99); Mean Platelet Volume 7.8 fl (7.4-10.4); Monocytes # 0.1 K/mm3 (0.1-1.0); Monocytes % 2.2 % (1.7-9.3); Neutrophils # 1.5 K/mm3 (1.8-7.8); Neutrophils % 50.1 % (37.0-80.0); Platelet Count 657 K/mm3 (142-424); Red Blood Count 3.49 M/mm3 (4.20-5.40); Red Cell Distribution Width 18.2 % (11.5-17.5); White Blood Count 2.9 K/mm3 (4.8-10.8)
[2019-01-07 11:32] VITALS: BP 157/68; PULSE 73; RESP 18; TEMP 36.6; O2SAT 98
[2019-01-07 12:02] VITALS: BP 149/70; PULSE 77; RESP 18; O2SAT 97
[2019-01-07 12:32] VITALS: BP 151/69; PULSE 72; RESP 18; O2SAT 97
[2019-01-07 13:00] VITALS: BP 144/56; PULSE 72; RESP 18; O2SAT 97
== END 2019-01-07 13:00 | disposition home or self-care (01) ==
LOC: INF 10:02
PROVIDERS: Visit Provider Internal Medicine Medical Oncology
DX: C25.9 Malignant neoplasm of pancreas, unspecified (principal)
CPT/HCPCS: 85025; 96413; 96417; J8501; J9201; J9264; Q0166

== ENCOUNTER 2019-01-22 08:44 | Outpatient (CLI) | payer MEDICARE, SELFPAY ==
[2019-01-22 08:45] VITALS: BMI 20.3
[2019-01-22 09:06] LABS: Basophils % 0.4 % (0.1-2.0); Eosinophils # 0.2 K/mm3 (0.0-0.4); Eosinophils % 3.4 % (0.1-12.0); Hematocrit 31.4 % (37.0-47.0); Hemoglobin 9.7 g/dL (12.2-16.2); Lymphocytes # 1.4 K/mm3 (0.7-4.5); Lymphocytes % 27.1 % (10-50); Mean Corpuscular Hemoglobin 28.3 pg (27.0-31.2); Mean Corpuscular Volume 91.4 fl (81-99); Monocytes # 0.4 K/mm3 (0.1-1.0); Monocytes % 8.3 % (1.7-9.3); Neutrophils # 3.2 K/mm3 (1.8-7.8); Neutrophils % 60.9 % (37.0-80.0); Platelet Count 388 K/mm3 (142-424); Red Blood Count 3.44 M/mm3 (4.20-5.40); Red Cell Distribution Width 19.9 % (11.5-17.5); White Blood Count 5.2 K/mm3 (4.8-10.8)
[2019-01-22 09:18] LABS: Alanine Aminotransferase 23 U/L (12-78); Albumin Level 3.2 gm/dL (3.4-5.0); Alkaline Phosphatase 137 U/L (46-116); Anion Gap 10.9 mEq/L (5-15); Aspartate Amino Transferase 14 U/L (15-37); Bilirubin,Total 0.3 mg/dL (0.2-1.0); Blood Urea Nitrogen 20 mg/dL (7-18); Calcium 9.1 mg/dL (8.5-10.1); Carbon Dioxide 28 mmol/L (21.0-32.0); Chloride 104 mmol/L (98-107); Creatinine Clearance Estimated 43 mL/min (50-200); Creatinine,Serum 0.73 mg/dL (0.55-1.02); Estimated Glomerular Filt Rate 77 ml/min (>60); GFR (African American) 94 ML/MIN (>60); Globulin 3.2 gm/dl (1.3-3.2); Glucose 128 mg/dL (74-106); Potassium 3.9 mmoL/L (3.5-5.1); Sodium 139 mmol/L (136-145); Total Protein,Serum 6.4 gm/dL (6.4-8.2)
[2019-01-22 10:43] VITALS: BP 147/71; PULSE 70; RESP 18; TEMP 36.6; O2SAT 98
[2019-01-22 11:13] VITALS: BP 144/70; PULSE 74; RESP 18; O2SAT 97
[2019-01-22 11:43] VITALS: BP 152/71; PULSE 71; RESP 18; O2SAT 97
[2019-01-22 12:13] VITALS: BP 139/73; PULSE 74; RESP 18; O2SAT 98
[2019-01-22 12:25] VITALS: BP 136/77; PULSE 78; RESP 18; O2SAT 97
== END 2019-01-22 12:26 | disposition home or self-care (01) ==
LOC: INF 08:44
PROVIDERS: Visit Provider Internal Medicine Medical Oncology
DX: Z51.11 Encounter for antineoplastic chemotherapy (principal); C25.9 Malignant neoplasm of pancreas, unspecified
CPT/HCPCS: 80053; 85025; 96413; 96417; J8501; J9201; J9264; Q0166

== ENCOUNTER 2019-01-28 09:00 | Outpatient (CLI) | payer MEDICARE, SELFPAY ==
[2019-01-28 09:01] VITALS: BMI 23.0
[2019-01-28 09:25] LABS: Basophils % 1.1 % (0.1-2.0); Eosinophils # 0.1 K/mm3 (0.0-0.4); Eosinophils % 2.9 % (0.1-12.0); Hematocrit 30.5 % (37.0-47.0); Hemoglobin 9.5 g/dL (12.2-16.2); Lymphocytes # 1.3 K/mm3 (0.7-4.5); Lymphocytes % 37.5 % (10-50); Mean Corpuscular HGB Conc 31.3 g/dL (31.8-35.4); Mean Corpuscular Hemoglobin 28.4 pg (27.0-31.2); Mean Corpuscular Volume 90.8 fl (81-99); Mean Platelet Volume 7.7 fl (7.4-10.4); Monocytes # 0.1 K/mm3 (0.1-1.0); Monocytes % 1.9 % (1.7-9.3); Neutrophils % 56.7 % (37.0-80.0); Platelet Count 535 K/mm3 (142-424); Red Blood Count 3.36 M/mm3 (4.20-5.40); Red Cell Distribution Width 19.1 % (11.5-17.5); White Blood Count 3.5 K/mm3 (4.8-10.8)
[2019-01-28 10:19] VITALS: BP 125/71; PULSE 74; RESP 18; TEMP 36.3; O2SAT 99
[2019-01-28 10:49] VITALS: BP 132/76; PULSE 71; RESP 18; O2SAT 99
[2019-01-28 11:19] VITALS: BP 154/73; PULSE 73; RESP 20; O2SAT 98
[2019-01-28 11:49] VITALS: BP 138/77; PULSE 76; RESP 20; O2SAT 99
[2019-01-28 12:10] VITALS: BP 131/76; PULSE 74; RESP 20; O2SAT 98
== END 2019-01-28 12:12 | disposition home or self-care (01) ==
LOC: INF 09:00
PROVIDERS: Visit Provider Internal Medicine Medical Oncology
DX: Z51.11 Encounter for antineoplastic chemotherapy (principal); C25.9 Malignant neoplasm of pancreas, unspecified
CPT/HCPCS: 85025; 96413; 96417; J8501; J9201; J9264; Q0166

== ENCOUNTER 2019-02-09 08:43 | Outpatient (CLI) | payer MEDICARE, SELFPAY ==
[2019-02-09 08:33] VITALS: BMI 23.0
--- NOTE | 2019-02-09 08:46 | CT_ITS ---
PROCEDURE: CT CHEST W CON CLINICAL HISTORY: PANCREATIC CANCER Follow-up pancreatic cancer COMPARISON: CHESTWW CT chest wo/w con from 12/16/2018 TECHNIQUE: 75 mL Optiray 350 performed in conjunction with the chest CT Axial images obtained with sagittal and coronal reformats. All CT scans at the facility use one or more dose reduction, viz: automated exposure control, ma/kV adjustment per patient size (including targeted exams where dose is matched to indication, i.e. head), or iterative reconstruction technique. FINDINGS: There are numerous bilateral pulmonary nodules many of which are cavitated. These are unchanged compared to the previous exam. No new nodules evident. No mediastinal or hilar mass or adenopathy. Partially calcified mass once again noted involving the right lobe of the thyroid gland unchanged. No lobar consolidation or collapse. No effusions. Scattered blastic metastasis are once again noted involving multiple vertebral bodies. There is increased sclerosis of these lesions. IMPRESSION: 1. Overall no change in the multiple cavitating pulmonary nodules consistent with metastatic disease. 2. Multiple blastic metastatic lesions of the spine which are somewhat more prominent compared to the previous study. Dictated by: Tani Greenwood MD 02/11/2019 06:37 Electronically signed by Tani Greenwood MD in [place] 02/11/2019 06:37
--- NOTE | 2019-02-09 08:46 | CT_ITS ---
PROCEDURE: CT ABDOMEN PELVIS W CON CLINICAL HISTORY: PANCREATIC CANCER Follow-up metastatic pancreatic cancer COMPARISON: ABDPELWW CT abdomen pelvis wo/w con from 12/16/2018 TECHNIQUE: 75 mL Optiray 350 performed in conjunction with the chest CT Axial images obtained with sagittal and coronal reformats. All CT scans at the facility use one or more dose reduction, viz: automated exposure control, ma/kV adjustment per patient size (including targeted exams where dose is matched to indication, i.e. head), or iterative reconstruction technique. FINDINGS: There has been no significant change in the isodense hepatic lesions the largest in the hepatic dome measuring 2.6 cm with a central calcification. There is atrophy of the tail and body of the pancreas with no change in size of the mass at the body of the pancreas measuring approximately 2 cm. There is mild dilatation of the pancreatic duct in the pancreatic tail. The head of the pancreas has an unremarkable appearance. Stable left adrenal nodule. The spleen and kidneys have an unremarkable appearance. There is mild stranding of the fat lateral to the pancreatic tail along the lateral conal fascia slightly increased. No intestinal obstruction or free air. No focal pelvic mass or abscess evident. Scattered diverticula are noted without evidence of diverticulitis. The blastic lesion at T12 has increased in size. Cyst an area of sclerosis involves the right iliac crest unchanged. There is an area of sclerosis involving the right femoral neck posteriorly which has become more prominent since the previous exam. IMPRESSION: 1. Stable appearance of the hepatic hypodense lesions and mass involving the mid aspect of the pancreas and left adrenal gland. 2. The blastic lesion at L1 and in the right femoral neck has become more prominent compared to the previous exam and may represent progression of metastatic disease Dictated by: Tani Greenwood MD 02/11/2019 09:28 Electronically signed by Tani Greenwood MD in [place] 02/11/2019 09:28
[2019-02-09 08:51] LABS: Basophils % 0.2 % (0.1-2.0); Eosinophils # 0.2 K/mm3 (0.0-0.4); Eosinophils % 3.6 % (0.1-12.0); Hematocrit 28.9 % (37.0-47.0); Hemoglobin 9.4 g/dL (12.2-16.2); Lymphocytes # 1.3 K/mm3 (0.7-4.5); Lymphocytes % 24.2 % (10-50); Mean Corpuscular HGB Conc 32.5 g/dL (31.8-35.4); Mean Corpuscular Hemoglobin 29.7 pg (27.0-31.2); Mean Corpuscular Volume 91.5 fl (81-99); Mean Platelet Volume 7.8 fl (7.4-10.4); Monocytes # 0.5 K/mm3 (0.1-1.0); Monocytes % 9.6 % (1.7-9.3); Neutrophils # 3.3 K/mm3 (1.8-7.8); Neutrophils % 62.4 % (37.0-80.0); Platelet Count 298 K/mm3 (142-424); Red Blood Count 3.16 M/mm3 (4.20-5.40); Red Cell Distribution Width 19.5 % (11.5-17.5); White Blood Count 5.4 K/mm3 (4.8-10.8)
[2019-02-09 09:03] LABS: Alanine Aminotransferase 32 U/L (12-78); Albumin/Globulin Ratio 0.9 (1.1-1.8); Alkaline Phosphatase 136 U/L (46-116); Anion Gap 12.6 mEq/L (5-15); Aspartate Amino Transferase 23 U/L (15-37); Bilirubin,Total 0.3 mg/dL (0.2-1.0); Blood Urea Nitrogen 15 mg/dL (7-18); Calcium 9.1 mg/dL (8.5-10.1); Carbon Dioxide 27 mmol/L (21.0-32.0); Chloride 104 mmol/L (98-107); Creatinine Clearance Estimated 44 mL/min (50-200); Creatinine,Serum 0.83 mg/dL (0.55-1.02); Estimated Glomerular Filt Rate 67 ml/min (>60); GFR (African American) 81 ML/MIN (>60); Globulin 3.3 gm/dl (1.3-3.2); Glucose 146 mg/dL (74-106); Potassium 3.6 mmoL/L (3.5-5.1); Sodium 140 mmol/L (136-145); Total Protein,Serum 6.3 gm/dL (6.4-8.2)
== END 2019-02-09 10:15 | disposition home or self-care (01) ==
LOC: INF 08:44
PROVIDERS: PCP Internal Medicine Adolescent Medicine; Visit Provider Internal Medicine Medical Oncology
DX: Z51.11 Encounter for antineoplastic chemotherapy (principal); C25.9 Malignant neoplasm of pancreas, unspecified
CPT/HCPCS: 71260; 74177; 80053; 85025; J1642; Q9967

== ENCOUNTER 2019-02-12 09:43 | Outpatient (CLI) | payer MEDICARE, SELFPAY ==
[2019-02-12 10:38] VITALS: BP 133/68; PULSE 76; RESP 20; TEMP 36.3; O2SAT 98
[2019-02-12 11:08] VITALS: BP 141/69; PULSE 79; RESP 20; O2SAT 97
[2019-02-12 11:38] VITALS: BP 138/67; PULSE 74; RESP 20; O2SAT 98
[2019-02-12 12:08] VITALS: BP 131/65; PULSE 78; RESP 20; O2SAT 98
[2019-02-12 12:15] VITALS: BP 130/67; PULSE 76; RESP 20; O2SAT 98
== END 2019-02-12 12:15 | disposition home or self-care (01) ==
LOC: INF 09:43
PROVIDERS: Visit Provider Internal Medicine Medical Oncology
DX: Z51.11 Encounter for antineoplastic chemotherapy (principal); C25.9 Malignant neoplasm of pancreas, unspecified
CPT/HCPCS: 96413; 96417; J9201; J9264; Q0166

== ENCOUNTER 2019-02-19 09:57 | Outpatient (CLI) | payer MEDICARE, SELFPAY ==
[2019-02-19 10:01] VITALS: BMI 23.2
[2019-02-19 10:34] LABS: Basophils % 0.9 % (0.1-2.0); Eosinophils # 0.2 K/mm3 (0.0-0.4); Eosinophils % 3.5 % (0.1-12.0); Hematocrit 29.5 % (37.0-47.0); Hemoglobin 9.1 g/dL (12.2-16.2); Lymphocytes # 1.4 K/mm3 (0.7-4.5); Lymphocytes % 32.1 % (10-50); Mean Corpuscular HGB Conc 30.7 g/dL (31.8-35.4); Mean Corpuscular Hemoglobin 28.4 pg (27.0-31.2); Mean Corpuscular Volume 92.6 fl (81-99); Mean Platelet Volume 8.1 fl (7.4-10.4); Monocytes # 0.2 K/mm3 (0.1-1.0); Monocytes % 5.1 % (1.7-9.3); Neutrophils # 2.5 K/mm3 (1.8-7.8); Neutrophils % 58.4 % (37.0-80.0); Platelet Count 508 K/mm3 (142-424); Red Blood Count 3.19 M/mm3 (4.20-5.40); Red Cell Distribution Width 18.1 % (11.5-17.5); White Blood Count 4.3 K/mm3 (4.8-10.8)
[2019-02-19 11:51] VITALS: BP 134/55; PULSE 71; RESP 20; TEMP 36.6; O2SAT 98
[2019-02-19 12:21] VITALS: BP 145/59; PULSE 76; RESP 20; O2SAT 97
[2019-02-19 12:51] VITALS: BP 157/57; PULSE 76; RESP 20; O2SAT 98
[2019-02-19 13:21] VITALS: BP 149/58; PULSE 79; RESP 20; O2SAT 98
[2019-02-19 13:30] VITALS: BP 155/60; PULSE 72; RESP 20; O2SAT 97
== END 2019-02-19 13:30 | disposition home or self-care (01) ==
LOC: INF 09:57
PROVIDERS: Visit Provider Internal Medicine Medical Oncology
DX: Z51.11 Encounter for antineoplastic chemotherapy (principal); C25.9 Malignant neoplasm of pancreas, unspecified
CPT/HCPCS: 85025; 96413; 96417; J1642; J8501; J9201; J9264; Q0166

== ENCOUNTER 2019-03-02 10:04 | Outpatient (CLI) | payer MEDICARE, SELFPAY ==
[2019-03-02 10:13] VITALS: BMI 23.2
[2019-03-02 11:44] LABS: Basophils % 0.3 % (0.1-2.0); Eosinophils # 0.1 K/mm3 (0.0-0.4); Eosinophils % 2.8 % (0.1-12.0); Hematocrit 28.6 % (37.0-47.0); Hemoglobin 8.7 g/dL (12.2-16.2); Lymphocytes # 1.2 K/mm3 (0.7-4.5); Lymphocytes % 25.3 % (10-50); Mean Corpuscular HGB Conc 30.5 g/dL (31.8-35.4); Mean Corpuscular Hemoglobin 28.9 pg (27.0-31.2); Mean Corpuscular Volume 94.7 fl (81-99); Mean Platelet Volume 7.9 fl (7.4-10.4); Monocytes # 0.4 K/mm3 (0.1-1.0); Monocytes % 8.1 % (1.7-9.3); Neutrophils # 3.1 K/mm3 (1.8-7.8); Neutrophils % 63.5 % (37.0-80.0); Platelet Count 220 K/mm3 (142-424); Red Blood Count 3.02 M/mm3 (4.20-5.40); Red Cell Distribution Width 19.9 % (11.5-17.5); White Blood Count 4.9 K/mm3 (4.8-10.8)
[2019-03-02 12:02] LABS: Alanine Aminotransferase 21 U/L (12-78); Albumin Level 3.1 gm/dL (3.4-5.0); Alkaline Phosphatase 143 U/L (46-116); Anion Gap 11.1 mEq/L (5-15); Aspartate Amino Transferase 19 U/L (15-37); Bilirubin,Total 0.3 mg/dL (0.2-1.0); Blood Urea Nitrogen 18 mg/dL (7-18); Calcium 8.7 mg/dL (8.5-10.1); Carbon Dioxide 29 mmol/L (21.0-32.0); Chloride 102 mmol/L (98-107); Creatinine Clearance Estimated 44 mL/min (50-200); Creatinine,Serum 0.92 mg/dL (0.55-1.02); Estimated Glomerular Filt Rate 59 ml/min (>60); GFR (African American) 72 ML/MIN (>60); Globulin 3.2 gm/dl (1.3-3.2); Glucose 121 mg/dL (74-106); Potassium 4.1 mmoL/L (3.5-5.1); Sodium 138 mmol/L (136-145); Total Protein,Serum 6.3 gm/dL (6.4-8.2)
[2019-03-05 06:10] LABS: CA 19-9 1045 U/mL (0-35)
== END 2019-03-02 10:30 | disposition home or self-care (01) ==
LOC: INF 10:04
PROVIDERS: PCP Internal Medicine Adolescent Medicine; Visit Provider Internal Medicine Medical Oncology
DX: C25.1 Malignant neoplasm of body of pancreas (principal); Z45.2 Encounter for adjustment and management of vascular access device
CPT/HCPCS: 80053; 85025; 86316; J1642

== ENCOUNTER 2019-03-05 09:43 | Outpatient (CLI) | payer MEDICARE, SELFPAY ==
[2019-03-05 10:58] VITALS: BP 168/72; PULSE 74; RESP 18; TEMP 36.1; O2SAT 97
[2019-03-05 11:15] VITALS: BP 169/87; PULSE 71; RESP 18; TEMP 36.1
[2019-03-05 11:35] VITALS: BP 186/80; PULSE 69; RESP 18; TEMP 36.1
[2019-03-05 11:56] VITALS: BP 189/68; PULSE 71; RESP 18; TEMP 36
[2019-03-05 12:15] VITALS: BP 193/84; PULSE 70; RESP 18; TEMP 36.1
[2019-03-05 13:00] VITALS: BP 180/75; PULSE 70; RESP 18; TEMP 36.2
== END 2019-03-05 13:00 | disposition home or self-care (01) ==
LOC: INF 09:43
PROVIDERS: Visit Provider Internal Medicine Medical Oncology
DX: Z51.11 Encounter for antineoplastic chemotherapy (principal); C25.9 Malignant neoplasm of pancreas, unspecified
CPT/HCPCS: 96413; 96415; 96417; J8501; J9201; J9264; Q0166

== ENCOUNTER 2019-03-12 09:54 | Outpatient (CLI) | payer MEDICARE, SELFPAY ==
[2019-03-12 09:57] VITALS: BMI 23.2
[2019-03-12 10:12] LABS: Basophils % 0.6 % (0.1-2.0); Eosinophils # 0.2 K/mm3 (0.0-0.4); Eosinophils % 4.5 % (0.1-12.0); Hemoglobin 8.9 g/dL (12.2-16.2); Lymphocytes # 1.2 K/mm3 (0.7-4.5); Lymphocytes % 29.8 % (10-50); Mean Corpuscular HGB Conc 29.7 g/dL (31.8-35.4); Mean Corpuscular Hemoglobin 28.5 pg (27.0-31.2); Mean Platelet Volume 9.5 fl (7.4-10.4); Monocytes # 0.2 K/mm3 (0.1-1.0); Monocytes % 3.8 % (1.7-9.3); Neutrophils # 2.5 K/mm3 (1.8-7.8); Neutrophils % 61.3 % (37.0-80.0); Platelet Count 408 K/mm3 (142-424); Red Blood Count 3.12 M/mm3 (4.20-5.40); Red Cell Distribution Width 18.3 % (11.5-17.5); White Blood Count 4.1 K/mm3 (4.8-10.8)
[2019-03-12 11:12] VITALS: BP 170/63; PULSE 73; RESP 20; TEMP 36.4; O2SAT 97
[2019-03-12 11:42] VITALS: BP 143/57; PULSE 76; RESP 20; O2SAT 98
[2019-03-12 12:12] VITALS: BP 151/60; PULSE 78; RESP 20; O2SAT 98
[2019-03-12 12:45] VITALS: BP 168/69; PULSE 69; RESP 20; O2SAT 98
== END 2019-03-12 12:50 | disposition home or self-care (01) ==
LOC: INF 09:54
PROVIDERS: Visit Provider Internal Medicine Medical Oncology
DX: C25.1 Malignant neoplasm of body of pancreas (principal)
CPT/HCPCS: 85025; 96413; 96417; J1642; J8501; J9201; J9264; Q0166

== ENCOUNTER 2019-03-24 08:00 | Outpatient (RCR) | payer MEDICARE, SELFPAY ==
--- NOTE | 2018-12-16 14:19 | HMH.PTOPEV ---
PT Outpatient Evaluation Rehab PT Outpatient Evaluation Start: 12/16/18 14:07 Freq: Status: Active Protocol: Document 12/16/18 14:07 BARRY (Rec: 12/16/18 14:18 BARRY [id number]) Electronically Signed By Tariq Webber, PT 12/16/18 14:07 Outpatient Therapy Subjective History Subjective History Pt reports generalized weakness and balance issues over the last month, which she believes is related to chemotherapy treatments for pancreatic cx. Pt reports ' bouncing down the hallways' at home due to loss of balance, and reports some LE fatigue with prolonged wt. bearing activity. Chief Complaint Weakness Symptoms Relieved By Rest/Positioning Symptoms Aggravated By Standing,Physical Activity, Walking Prior Functional Limitations None Current Functional Limitations Housework,Standing,Walking, Stairs,Balance Hip/Knee Eval Gait Observation General Gait Pattern Observation No Deviations/Normal Assistive Device Assistive Devices None / NA MMT bilateral Hip Flexion Strength Grade 4- Good- Hip Abduction Strength Grade 3+ Fair+ Hip Adduction Strength Grade 3+ Fair+ Hip Extension Strength Grade 3+ Fair+ Hip External Rotation Strength Grade 4 Good Hip Internal Rotation Strength Grade 4 Good Knee Extension Strength Grade 5 Normal Knee Flexion Strength Grade 4 Good Ankle/Foot Eval MMT left Ankle Dorsiflexion Strength Grade 4- Good- right Ankle Dorsiflexion Strength Grade 4 Good Balance Eval Timed Up and Go Test 3. Is the Timed Up and Go Test result < yes 12 seconds? Outpatient Therapy Assessment Impairments Problems/Impairmments Impaired Strength,Impaired Walking,Impaired Standing, Impaired Household Care, Impaired Stair Climbing, Impaired TUG Time,Impaired Self Care/Self Management Prognosis Rehab Potential Good Clinical Impression Consistent with Diagnosis Yes Short Term Goals Number of Weeks 4 Increase Strength Yes: 4/5 Increase Ability to Walk Yes: 15MIN Increase Ability to Stand Yes: 30MIN Decrease TUG Time Yes: 12 SEC NO LOB Patient to be Ind w/ HEP Yes Steward/Stewardess Second Goals Number of Weeks 6-8 Increase Strength Yes: 4-4+/5 Incr
--- NOTE | 2019-01-15 08:44 | HMH.RHREAS ---
Rehab Reassessment Rehab OP Re-assessment Start: 01/15/19 08:40 Freq: Status: Active Protocol: Document 01/15/19 08:40 BARRY (Rec: 01/15/19 08:44 BARRY [id number]) Electronically Signed By Tariq Webber, PT 01/15/19 08:40 Rehab Re-assessment Subjective Subjective PT REPORTS CONTINUED IMPROVEMENT W/STRENGTH AND ENDURANCE Objective Objective Notes MMT: B HIP FLX 4-4+/5, B KNEE FLX AND EXT 4-4+/5, R DF 4+/5, L DF 4-/5, L HIP ABD 4-/5, R HIP ABD 4-4+/5 TU SEC NO LOB Assessment Progress Assessment Progressing as Expected Assessment Notes PT W/IMPROVEMENTS IN STRENGTH, TUG, AND ENDURANCE Patient goals met STG'S /5 LTG'S 08/07 Goals Not Met STG'S 06/07, LTG'S 09/07 Plan Plan PT TO CONT. W/SKILLED P.T. TO MAKE FURTHER IMPROVEMENTS IN STRENGTH, AND TUG TIME TO ALLOW FOR OPTIMAL FUNCTION Frequency of Therapy 1-2X/WK Duration of therapy 3-4WKS Time and Billing Re-Eval Time 15 Re-Eval Billing Units 0 PHYSICIAN CERTIFICATION: I certify the specified therapy services for Fili Gupta are required, authorized, and reviewed every 30 days.
--- NOTE | 2019-02-26 09:18 | HMH.RHREAS ---
Rehab Reassessment Rehab OP Re-assessment Start: 01/15/19 08:40 Freq: Status: Active Protocol: Document 02/26/19 08:51 BARRY (Rec: 02/26/19 09:18 BARRY [id number]) Electronically Signed By Tariq Webber, PT 02/26/19 08:51 Rehab Re-assessment Subjective Subjective PT REPORTS IMPROVED STRENGTH W /SKILLED P.T., HOWEVER, STRUGGLES TO INCREASE ENDURANCE Objective Objective Notes TU SEC NO LOB MMT: B KNEE FLX AND EXT 4+/5, B HIP FLX 4+/5, B HIP ABD/ADD 4/4, DF R 5/5, DF L 4-/5 Assessment Progress Assessment Progressing as Expected Assessment Notes Patient strength still improving. Patient balance still unsteady at times however patient does have foot drop and wears no AD. Patient goals met STG'S 4/5 LTG'S 3/7 Goals Not Met STG'S 06/07, LTG'S 4 Plan Plan PT TO CONT. W/SKILLED P.T. TO MAKE FURTHER IMPROVEMENTS IN STRENGTH, AND TUG TIME TO ALLOW FOR OPTIMAL FUNCTION Frequency of Therapy 1-2X/WK Duration of therapy 3-4WKS Time and Billing Re-Eval Time 15 Re-Eval Billing Units 0 PHYSICIAN CERTIFICATION: I certify the specified therapy services for Fili Gupta are required, authorized, and reviewed every 30 days.
== END 2019-03-24 08:05 | disposition home or self-care (01) ==
LOC: PT 08:00
PROVIDERS: Visit Provider Internal Medicine Medical Oncology
DX: R26.9 Unspecified abnormalities of gait and mobility (principal); C25.9 Malignant neoplasm of pancreas, unspecified
CPT/HCPCS: 97110; 97112; 97140; 97163; 97164

== ENCOUNTER 2019-03-27 09:51 | Outpatient (CLI) | payer MEDICARE, SELFPAY ==
[2019-03-27 09:52] VITALS: BMI 22.4
[2019-03-27 10:09] LABS: Basophils % 0.6 % (0.1-2.0); Eosinophils # 0.3 K/mm3 (0.0-0.4); Eosinophils % 5.7 % (0.1-12.0); Hematocrit 28.8 % (37.0-47.0); Hemoglobin 8.8 g/dL (12.2-16.2); Lymphocytes % 20.9 % (10-50); Mean Corpuscular HGB Conc 30.7 g/dL (31.8-35.4); Mean Corpuscular Hemoglobin 29.2 pg (27.0-31.2); Mean Corpuscular Volume 95.2 fl (81-99); Mean Platelet Volume 9.5 fl (7.4-10.4); Monocytes # 0.5 K/mm3 (0.1-1.0); Monocytes % 10.5 % (1.7-9.3); Neutrophils # 3.1 K/mm3 (1.8-7.8); Neutrophils % 62.4 % (37.0-80.0); Platelet Count 443 K/mm3 (142-424); Red Blood Count 3.02 M/mm3 (4.20-5.40); Red Cell Distribution Width 17.3 % (11.5-17.5)
[2019-03-27 10:20] LABS: Alanine Aminotransferase 17 U/L (12-78); Albumin/Globulin Ratio 0.9 (1.1-1.8); Alkaline Phosphatase 172 U/L (46-116); Anion Gap 8.8 mEq/L (5-15); Aspartate Amino Transferase 17 U/L (15-37); Bilirubin,Total 0.3 mg/dL (0.2-1.0); Blood Urea Nitrogen 19 mg/dL (7-18); Calcium 8.5 mg/dL (8.5-10.1); Carbon Dioxide 29 mmol/L (21.0-32.0); Chloride 102 mmol/L (98-107); Creatinine Clearance Estimated 41 mL/min (50-200); Creatinine,Serum 1.05 mg/dL (0.55-1.02); Estimated Glomerular Filt Rate 51 ml/min (>60); GFR (African American) 61 ML/MIN (>60); Globulin 3.2 gm/dl (1.3-3.2); Glucose 165 mg/dL (74-106); Potassium 3.8 mmoL/L (3.5-5.1); Sodium 136 mmol/L (136-145); Total Protein,Serum 6.2 gm/dL (6.4-8.2)
[2019-03-27 12:25] VITALS: BP 155/63; PULSE 72; RESP 18
[2019-03-27 12:45] VITALS: BP 153/51; PULSE 72; RESP 18
[2019-03-27 13:25] VITALS: BP 159/60; PULSE 68; RESP 18
[2019-03-27 13:45] VITALS: BP 166/69; PULSE 69; RESP 18
[2019-03-27 14:10] VITALS: BP 159/63; PULSE 69; RESP 18
== END 2019-03-27 14:10 | disposition home or self-care (01) ==
LOC: INF 09:52
PROVIDERS: Visit Provider Internal Medicine Medical Oncology
DX: C25.9 Malignant neoplasm of pancreas, unspecified (principal)
CPT/HCPCS: 80053; 85025; 96413; 96417; J8501; J9201; J9264; Q0166

== ENCOUNTER 2019-04-02 09:40 | Outpatient (CLI) | payer MEDICARE, SELFPAY ==
[2019-04-02 09:47] VITALS: BMI 22.9
[2019-04-02 10:01] LABS: Basophils % 0.9 % (0.1-2.0); Eosinophils # 0.1 K/mm3 (0.0-0.4); Eosinophils % 4.5 % (0.1-12.0); Hematocrit 28.8 % (37.0-47.0); Hemoglobin 8.7 g/dL (12.2-16.2); Lymphocytes # 0.9 K/mm3 (0.7-4.5); Lymphocytes % 29.6 % (10-50); Mean Corpuscular HGB Conc 30.3 g/dL (31.8-35.4); Mean Corpuscular Hemoglobin 29.2 pg (27.0-31.2); Mean Corpuscular Volume 96.5 fl (81-99); Mean Platelet Volume 9.6 fl (7.4-10.4); Monocytes # 0.1 K/mm3 (0.1-1.0); Monocytes % 3.5 % (1.7-9.3); Neutrophils # 1.9 K/mm3 (1.8-7.8); Neutrophils % 61.5 % (37.0-80.0); Platelet Count 517 K/mm3 (142-424); Red Blood Count 2.98 M/mm3 (4.20-5.40); White Blood Count 3.1 K/mm3 (4.8-10.8)
[2019-04-02 11:27] VITALS: BP 159/64; PULSE 70; RESP 18; TEMP 36.6
[2019-04-02 11:45] VITALS: BP 174/73; PULSE 73; RESP 18
[2019-04-02 12:18] VITALS: BP 165/103; PULSE 69; RESP 18
[2019-04-02 12:30] VITALS: BP 175/66; PULSE 71; RESP 18
[2019-04-02 12:45] VITALS: BP 170/63; PULSE 69; RESP 18
[2019-04-02 13:15] VITALS: BP 183/70; PULSE 70; RESP 18
== END 2019-04-02 13:15 | disposition home or self-care (01) ==
LOC: INF 09:41
PROVIDERS: Visit Provider Internal Medicine Medical Oncology
DX: Z51.11 Encounter for antineoplastic chemotherapy (principal); C25.9 Malignant neoplasm of pancreas, unspecified
CPT/HCPCS: 85025; 96413; 96415; 96417; J8501; J9201; J9264; Q0166

== ENCOUNTER 2019-04-13 10:02 | Outpatient (CLI) | payer MEDICARE, SELFPAY ==
[2019-04-13 10:03] VITALS: BMI 23.2
[2019-04-13 10:44] LABS: Basophils % 0.6 % (0.1-2.0); Eosinophils # 0.2 K/mm3 (0.0-0.4); Eosinophils % 4.2 % (0.1-12.0); Hematocrit 25.3 % (37.0-47.0); Lymphocytes # 0.8 K/mm3 (0.7-4.5); Lymphocytes % 15.2 % (10-50); Mean Corpuscular HGB Conc 31.2 g/dL (31.8-35.4); Mean Platelet Volume 10.2 fl (7.4-10.4); Monocytes # 0.5 K/mm3 (0.1-1.0); Monocytes % 10.5 % (1.7-9.3); Neutrophils # 3.5 K/mm3 (1.8-7.8); Neutrophils % 69.5 % (37.0-80.0); Platelet Count 202 K/mm3 (142-424); Red Blood Count 2.64 M/mm3 (4.20-5.40); Red Cell Distribution Width 18.1 % (11.5-17.5)
[2019-04-13 10:50] LABS: Hemoglobin 7.9 g/dL (12.2-16.2)
[2019-04-13 10:52] LABS: Alanine Aminotransferase 25 U/L (12-78); Albumin Level 2.7 gm/dL (3.4-5.0); Albumin/Globulin Ratio 0.9 (1.1-1.8); Alkaline Phosphatase 167 U/L (46-116); Anion Gap 10.3 mEq/L (5-15); Aspartate Amino Transferase 28 U/L (15-37); Bilirubin,Total 0.4 mg/dL (0.2-1.0); Blood Urea Nitrogen 19 mg/dL (7-18); Calcium 8.1 mg/dL (8.5-10.1); Carbon Dioxide 29 mmol/L (21.0-32.0); Chloride 100 mmol/L (98-107); Creatinine Clearance Estimated 28 mL/min (50-200); Creatinine,Serum 1.57 mg/dL (0.55-1.02); Estimated Glomerular Filt Rate 32 ml/min (>60); GFR (African American) 39 ML/MIN (>60); Globulin 3.1 gm/dl (1.3-3.2); Glucose 137 mg/dL (74-106); Potassium 4.3 mmoL/L (3.5-5.1); Sodium 135 mmol/L (136-145); Total Protein,Serum 5.8 gm/dL (6.4-8.2)
[2019-04-14 13:17] LABS: CA 19-9 1433 U/mL (0-35)
== END 2019-04-13 10:35 | disposition home or self-care (01) ==
LOC: INF 10:02
PROVIDERS: Visit Provider Internal Medicine Medical Oncology
DX: C25.1 Malignant neoplasm of body of pancreas (principal)
CPT/HCPCS: 80053; 85025; 86316; J1642

== ENCOUNTER 2019-04-17 09:46 | Outpatient (CLI) | payer MEDICARE, SELFPAY ==
[2019-04-17] VITALS (11 sets, daily range): BP systolic 120–155; BP diastolic 45–69; PULSE 70–79; RESP 16–18; TEMP 36.8–37; O2SAT 96–98; BMI 21.8
[2019-04-17 10:20] LABS: Hematocrit 26.1 % (37.0-47.0)
[2019-04-17 10:21] LABS: Hemoglobin 7.9 g/dL (12.2-16.2)
--- NOTE | 2019-04-17 12:53 | PC.NURSE ---
04/17/19 1150 Blood transfusion initiated at this time. Patient to receive one unit of PRBC's. VSS. Denies c/o. Educated patient on s/s of transfusion reaction/ handout given/pt verbalizes understanding of all instructions. Lungs CTA.
--- NOTE | 2019-04-17 12:58 | PC.NURSE ---
04/17/19 1250 Patient tolerating blood well. Denies any complaints. Resp easy/reg. Lungs CTA. Skin warm/dry to touch. VSS. No s/s transfusion reaction or problems noted.
--- NOTE | 2019-04-17 14:05 | PC.NURSE ---
04/17/19 1350 Pt up to bathroom. Tolerating blood well with no s/s of blood transfusion reaction noted/pt denies complaints. VSS.
--- NOTE | 2019-04-17 14:29 | PC.NURSE ---
04/17/19 1415 Blood transfusion complete. Pt has tolerated blood transfusion well with no problems/no s/s transfusion reaction noted. Lungs CTA. Pt denies any complaints. VSS. Will draw 1 hour post transfusion H&H at 1515.
--- NOTE | 2019-04-17 15:40 | PC.NURSE ---
04/17/19 1515 1 hour post transfusion H&H drawn per protocol. R portacath flushes easily/good blood return. Port left accessed for pt return to infusion dept Saturday04/20/19. VSS. Lungs CTA. Patient denies complaints. Tolerated blood transfusion with no problems/no s/s transfusion reaction noted.
[2019-04-17 16:35] LABS: Hemoglobin 8.9 g/dL (12.2-16.2)
== END 2019-04-17 15:20 | disposition home or self-care (01) ==
LOC: INF 09:46
PROVIDERS: Visit Provider Internal Medicine Medical Oncology
DX: C25.9 Malignant neoplasm of pancreas, unspecified; D64.9 Anemia, unspecified
CPT/HCPCS: 36430; 85014; 85018; 86850; J1642; P9016

== ENCOUNTER 2019-04-20 09:09 | Outpatient (CLI) | payer MEDICARE, SELFPAY ==
[2019-04-20 09:11] VITALS: BMI 21.7
[2019-04-20 09:30] LABS: Basophils # 0.1 K/mm3 (0-0.2); Eosinophils # 0.7 K/mm3 (0.0-0.4); Eosinophils % 7.5 % (0.1-12.0); Hematocrit 33.4 % (37.0-47.0); Hemoglobin 10.2 g/dL (12.2-16.2); Lymphocytes # 1.1 K/mm3 (0.7-4.5); Mean Corpuscular HGB Conc 30.7 g/dL (31.8-35.4); Mean Corpuscular Hemoglobin 29.2 pg (27.0-31.2); Mean Corpuscular Volume 95.3 fl (81-99); Mean Platelet Volume 7.7 fl (7.4-10.4); Monocytes # 0.9 K/mm3 (0.1-1.0); Monocytes % 9.4 % (1.7-9.3); Neutrophils # 6.3 K/mm3 (1.8-7.8); Neutrophils % 70.1 % (37.0-80.0); Red Cell Distribution Width 16.6 % (11.5-17.5)
[2019-04-20 09:41] LABS: Platelet Count 804 K/mm3 (142-424)
[2019-04-20 09:47] LABS: Alanine Aminotransferase 25 U/L (12-78); Albumin Level 2.7 gm/dL (3.4-5.0); Albumin/Globulin Ratio 0.8 (1.1-1.8); Alkaline Phosphatase 194 U/L (46-116); Aspartate Amino Transferase 29 U/L (15-37); Bilirubin,Total 0.4 mg/dL (0.2-1.0); Blood Urea Nitrogen 14 mg/dL (7-18); Calcium 8.5 mg/dL (8.5-10.1); Carbon Dioxide 29 mmol/L (21.0-32.0); Chloride 99 mmol/L (98-107); Creatinine Clearance Estimated 38 mL/min (50-200); Estimated Glomerular Filt Rate 48 ml/min (>60); GFR (African American) 58 ML/MIN (>60); Globulin 3.4 gm/dl (1.3-3.2); Glucose 187 mg/dL (74-106); Sodium 135 mmol/L (136-145); Total Protein,Serum 6.1 gm/dL (6.4-8.2)
[2019-04-20 10:10] VITALS: BP 150/87; PULSE 82; RESP 16; TEMP 36.6; O2SAT 97
[2019-04-20 10:41] VITALS: BP 149/76; PULSE 79; RESP 18; TEMP 36.6; O2SAT 96
[2019-04-20 11:15] VITALS: BP 147/82; PULSE 80; RESP 18; TEMP 36.6; O2SAT 97
== END 2019-04-20 11:15 | disposition home or self-care (01) ==
LOC: INF 09:09
PROVIDERS: Visit Provider Internal Medicine Medical Oncology
DX: C25.9 Malignant neoplasm of pancreas, unspecified (principal)
CPT/HCPCS: 80053; 85025; 96360; J1642

== ENCOUNTER → 2019-04-21 10:28 | Outpatient (CLI) | payer MEDICARE, SELFPAY ==
--- NOTE | 2019-04-21 10:35 | CT_ITS ---
PROCEDURE: CT CHEST WO/W CON CLINCAL INDICATION: PANCREATIC CANCER follow-up pancreatic cancer COMPARISON: CT CHEST W CON from 02/09/2019 CT ABDOMEN PELVIS WO/W CON from 04/21/2019 TECHNIQUE: IV Contrast: 75ml Optiray 350 Axial images obtained with sagittal and coronal reformats. All CT scans at the facility use one or more dose reduction, viz: automated exposure control, ma/kV adjustment per patient size (including targeted exams where dose is matched to indication, i.e. head), or iterative reconstruction technique. FINDINGS: Partially calcified right thyroid mass once again noted not significantly changed. No mediastinal or hilar mass or adenopathy. Artifact is present from cardiac pacemaker device. There are numerous noncalcified pulmonary nodules once again noted. Many of these nodules are cavitated. The margins of many of these nodules are somewhat ill-defined. Patchy alveolar opacification noted in both lower lobes has developed in the interval. There are small bilateral pleural effusions which have also developed in the interval. No definite new nodules are identified. There is a 5 mm nodule in the right middle lobe which is slightly larger compared to the previous exam Multiple blastic lesions are once again noted of the spine and manubrium consistent with metastatic disease. These are not significantly changed. MediPort catheter remains in place. IMPRESSION: Numerous noncalcified pulmonary nodules consistent with metastatic disease are once again noted many of which are cavitated. Only 1 nodule with slightly larger the the the which is in the right middle lobe previously 4 mm and now 5 mm. No change in the bony metastasis of the spine and manubrium Dictated by: Tani Greenwood MD 04/22/2019 12:04 Electronically signed by Tani Greenwood MD in [place] 04/22/2019 12:04
--- NOTE | 2019-04-21 10:35 | CT_ITS ---
PROCEDURE: CT ABDOMEN PELVIS WO/W CON CLINICAL INDICATION: PANCREATIC CANCER Follow-up pancreatic cancer COMPARISON: CT ABDOMEN PELVIS W CON from 02/09/2019 CT CHEST WO/W CON from 04/21/2019 TECHNIQUE: IV Contrast: 75ML OPTIRAY 350 Oral Contrast 450ml Redicat Axial images obtained with sagittal and coronal reformats. All CT scans at the facility use one or more dose reduction, viz: automated exposure control, ma/kV adjustment per patient size (including targeted exams where dose is matched to indication, i.e. head), or iterative reconstruction technique. FINDINGS: LOWER THORAX: Please see chest CT report for lung base description ABDOMEN & PELVIS: There is a hypodense lesion in the hepatic dome on the right measuring 3 cm previously 2.5 cm. A coarse calcification is present along the superior aspect of this lesion. One other liver lesion is present anterior to the larger lesion at 8 mm not significantly changed. There is an 8 mm hypodensity in the left hepatic lobe at the hepatic dome slightly more prominent. There is a small subcapsular hypodense lesion in the right hepatic lobe anteriorly at 3 mm not significantly changed. There is a hypodense area in the dome of the spleen at 11 mm. This was not identified previously and may be due to perfusion artifact. Atrophy once again noted involving the tail and body of the pancreas. The mass in the body of the pancreas appears somewhat smaller at 1.7 cm previously 2.2 cm. The head of the pancreas has a normal appearance. Stable left adrenal nodule. The kidneys and retroperitoneum are unremarkable. No intestinal obstruction or free air. There is a mild amount of retained colonic feces. No pelvic mass or focal fluid collection evident in the pelvis. Blastic lesions at T11, T12, right acetabular roof, and right femoral neck are once again noted is somewhat more sclerotic compared to the previous exam. IMPRESSION: There is a mixed response in this patient with pancreatic cancer. The mass in the body of the pancreas is slightly smaller.. There has been progression however the liver lesions and the sclerotic bony metastasis. Dictated by: Tani Greenwood MD 04/22/2019 20:25 Electronically signed by Tani Greenwood MD in [place] 04/23/2019 05:43
== END ==
PROVIDERS: PCP Internal Medicine Adolescent Medicine; Visit Provider Internal Medicine Medical Oncology
DX: C25.1 Malignant neoplasm of body of pancreas (principal)
CPT/HCPCS: 71270; 74178; Q9967

== ENCOUNTER 2019-05-04 10:07 | Observation (INO) ==
--- NOTE | 2019-05-04 10:55 | Pharmacy Consult Notes ---
[facility] Pharmacy VTE Monitoring - Patient Demographics Admission date: 05/04/19 Report Date: 05/04/19 Time: 10:54 Allergies/Adverse Reactions: Patient Allergies No Known Drug Allergies Allergy (Verified 04/23/19 10:48) Height: 1.6 m Weight: 53.694 kg - Prophylaxis VTE Prophylaxis Ordered?: Yes Types of VTE Prophylaxis: TEDS Knee High Location of Applied Device: Bilateral Lower Extremeties - VTE Diagnosis Confirmed Treatment or plan recommended: Continue Current Treatment
[2019-05-04 13:01] LABS: Basophils # 0.1 K/mm3 (0-0.2); Basophils % 0.7 % (0.1-2.0); Eosinophils # 0.5 K/mm3 (0.0-0.4); Eosinophils % 4.2 % (0.1-12.0); Hematocrit 33.7 % (37.0-47.0); Hemoglobin 10.7 g/dL (12.2-16.2); Lymphocytes # 1.7 K/mm3 (0.7-4.5); Lymphocytes % 14.3 % (10-50); Mean Corpuscular HGB Conc 31.6 g/dL (31.8-35.4); Mean Corpuscular Volume 90.9 fl (81-99); Mean Platelet Volume 7.9 fl (7.4-10.4); Monocytes # 0.7 K/mm3 (0.1-1.0); Monocytes % 6.5 % (1.7-9.3); Neutrophils # 8.6 K/mm3 (1.8-7.8); Neutrophils % 74.3 % (37.0-80.0); Platelet Count 308 K/mm3 (142-424); Red Cell Distribution Width 15.9 % (11.5-17.5); White Blood Count 11.5 K/mm3 (4.8-10.8)
[2019-05-04 13:14] LABS: Anion Gap 13.1 mEq/L (5-15); Calcium 9.4 mg/dL (8.5-10.1)
--- NOTE | 2019-05-04 19:39 | Cardiology Report ---
APPROVED REPORT EXAM: Comprehensive 2D, Doppler, and color-flow Echocardiogram Enrollment Nurse: Izzy Esquivel CRT Ht: 5 ft 3 in Wt: 127lbs BSA: 1.59 BP: 175/71 mmHg Indications: mental status changes 2D Dimensions LVOT 1.70 cm (M/F) 1.5-2.5 M-Mode Dimensions RVDd 2.40 cm (0.9-2.6)LA Diam 3.90 cm (1.9-4.0) LVDd 5.30 cm (3.5-5.7)Ao Diam 3.00 cm (2.0-3.7) LVDs 2.90 cm (3.5-5.7)AV Cusp 1.80 cm (1.5-2.6) IVSd 1.20 cm (0.6-1.1)PWd 0.90 cm (0.6-1.1) EF (Teich) 76.10% FS 45.30% EDV (Teich) 135.00 mLESV (Teich) 32.20 mL LV Diastology E/A Ratio 0.80MED E' 5.07 (< 7 cm/sec) E'/MED E' Ratio15.20 (>14)LAT E' 4.00 (<10 cm/sec) E/LAT E' Ratio 19.30 (>14) Aortic Valve AoV Peak Ricky. 143.00 (50-130 cm/s)AI PHT 411.00 ms AO Peak GR. 8.00 mmHg Mitral Valve MV E Max Ricky. 77.00 (40-130 cm/s)MV A Velocity 93.80 (40-130 cm/s) E/A Ratio 0.80 Pulmonary Valve DC End VMAX 123.00 cm/s PA Accel Time 165.00 (>120 msec) Tricuspid Valve TR P. Onfnvvsx199.00 cm/sRAP Estimate 10.00 mmHg RVSP 42.00 mmHg Left Ventricle Left atrium is mildly enlarged, left ventricle is normal size, mild concentric left ventricular hypertrophy, visually estimated ejection fraction 55% with no regional wall motion abnormality. Grade 1 diastolic dysfunction seen with tissue Doppler evidence of raise left atrial pressure. Right Ventricle Right atrium and right ventricular normal size and contractility, there is a pacemaker lead seen in the right atrium and right ventricle. Aortic Valve Aortic valve is thickened and calcified leaflet chordae display good mobility, there is no aortic stenosis, there is moderate aortic insufficiency. Mitral Valve Mitral valve is grossly normal, there is mild mitral regurgitation. Tricuspid Valve Tricuspid valve is grossly normal, there is mild tricuspid regurgitation, tricuspid regurgitation jet velocity is inadequate for calculation of the right ventricular systolic pressure. Pulmonic Valve Pulmonic valve is poorly visualized. Great Vessels Aortic root is normal size. Pericardium No significant pericardial effusion noted. Conclusion 1. Mildly enlarged left atrium, normal left ventricular size, mild concentric left ventricular hypertrophy, visually estimated ejection fraction 55% with no regional wall motion abnormality, grade 1 diastolic dysfunction seen with tissue Doppler evidence of raise left atrial pressure. 2. Thickened and calcified aortic valve without aortic stenosis, there is moderate aortic insufficiency. 3. Mild mitral and tricuspid regurgitation. 4. No significant pericardial effusion noted. Electronically signed by : Caleb Valadez, 05/04/2019 19:39:11
--- NOTE | 2019-05-04 22:03 | History & Physical Report ---
*Admission Date: 05/04/19 *Chief complaint: Weakness, Slurred speech *History of present illness: 78 yr old female with HTN and known metastatic pancreatic cancer presented to office today with reports of mental status changes and increasing weakness. She has had at least 3 distinct episodes of slurred speech over the past 24 hours, left hemineglect described by her grandaughter, difficulty walking without assistance and difficulty with word-finding. She also had difficulty swallowing some of her pills last night. She has taken aspirin at home and over the phone we advised her to take an additional dose of her amlodipine for her known HTN. This morning she continues to have some ataxia, difficulty with word-finding, disorientation and was admitted for workup of mental status changes with concern for acute CVA, metabolic abnormalities or worsening metastatic disease. [facility] History I have reviewed the patient's past medical history: Yes Medical History: Reports:: Atrial Fibrillation, Cancer, Gastroesophageal Reflux Disease(GERD), Hyperlipidemia, Hypertension, Internal Pacemaker, Renal Insufficiency (baseline creatinine recently around 1.1) Denies:: Asthma, Chronic Obstructive Pulmonary Disease (COPD), Diabetes Mellitus Type 1, Diabetes Mellitus Type 2, MRSA, Seizures *Have you ever received a pneumonia vaccine?: Yes *Have you received a flu vaccine this season?: No Other Medical History: Reports: Anemia, Arthritis, Chemotherapy. Denies: Blood Transfusion Reaction, Hypothyroidism, Thyroid Disease Laterality Cases: Left: Other, Bilateral: Tonsillectomy Other Surgeries: Yes: Colonoscopy, Dilation and Curettage, Pacemaker, Tubal Ligation, Other (port) Amputation: No Fractures: No - *Social History Educational Level: Completed College Smoking Status: Never smoker Alcohol Intake: never Alcohol Intake Frequency:: holidays/special occasions only Substance Use Type: denies use *Occupational Status:: retired Housing: house Household Members: none ( recently ) *Travel in the last 8 weeks: None Family Hx:: Cancer, Diabetes, Heart Attack, Hyperlipidemia, Hypertension Review of Systems - Review of Systems Review of systems:: pertinent systems reviewed and negative unless documented below - Constitutional Reports fatigue, Reports lack of energy, Reports weakness - Eyes Reports blind spots - ENT Reports poor balance - *Cardiovascular Reports leg swelling, Denies chest pain, Denies shortness of breath - *Respiratory Reports cough (chronic, at baseline, nonproductive) - *Gastrointestinal Denies abdominal pain, Denies change in stools, Denies loose stools, Denies vomiting - *Musculoskeletal Reports joint pain, Reports back pain (known bony metastasis), Reports muscle weakness - Integumentary/Breasts Reports hair loss, Denies change in skin color, Denies yellowing of the skin - *Neurologic Reports abnormal walking, Reports abnormal speech, Reports confusion, Reports unsteadiness, Reports loss of vision, Reports memory loss - Psychiatric Reports difficulty concentrating, Reports memory loss, Denies mood swings - Hematologic/Lymphatic Reports easy bleeding, Reports easy bruising Meds Home Medications Medication Instructions Recorded Confirmed Type atorvastatin 20 mg tablet 20 mg PO HS 90 Days tab 08/12/17 05/04/19 History metoprolol tartrate 25 mg tablet 25 mg PO BID 90 Days tab 08/12/17 05/04/19 History omeprazole magnesium 20 mg 20 mg PO DAILY tab 09/04/17 05/04/19 History tablet,delayed release Estrogens, Conjugated [Premarin] 1 applic VG WEEKLY 05/04/18 05/04/19 History Ondansetron [Zofran 4mg ODT] 4 mg PO Q8HP PRN #12 tab.rapdis 05/04/18 05/04/19 Rx melatonin 5 mg capsule 5 mg PO HS cap 06/12/18 05/04/19 History multivit,mineral-folic acid 800 1 tab PO DAILY tab 06/12/18 05/04/19 History mcg-vit K 100 mcg-herbal no.289 tablet albuterol sulfate HFA 90 1 puff INHALATION NEEDED PRN 30 07/29/18 05/04/19 History mcg/actuation aerosol inhaler Days g aspirin 81 mg tablet,delayed 81 mg PO HS tab 08/29/18 05/04/19 History release Amlodipine Besylate [Amlodipine 5 mg PO DAILY 05/04/19 05/04/19 History 5mg tab] Tramadol HCl [Tramadol 50mg 50 mg PO Q4HP PRN 05/04/19 05/04/19 History Tab] Allergies Allergy/AdvReac Type Severity Reaction Status Date / Time No Known Drug Allergies Allergy Verified 04/23/19 10:48 Exam Vital signs and Labs for Last 24 Hours: Temp Pulse Resp BP Pulse Ox 98.7 F 74 17 149/67 H 93 L 05/04/19 20:00 05/04/19 20:00 05/04/19 20:00 05/04/19 20:00 05/04/19 20:00 Laboratory Results - last 24 hr 05/04/19 12:50: WBC 11.5 H, RBC 3.70 L, Hgb 10.7 L, Hct 33.7 L, MCV 90.9, MCH 28.7, MCHC 31.6 L, RDW 15.9, Plt Count 308, MPV 7.9, Neut % (Auto) 74.3, Lymph % (Auto) 14.3, [place] % (Auto) 6.5, Eos % (Auto) 4.2, Baso % (Auto) 0.7, Neut # (Auto) 8.6 H, Lymph # (Auto) 1.7, [place] # (Auto) 0.7, Eos # (Auto) 0.5 H, Baso # (Auto) 0.1 05/04/19 12:50: Sodium 132 L, Potassium 4.1, Chloride 95 L, Carbon Dioxide 28, Anion Gap 13.1, BUN 20 H, Creatinine 1.12 H, Estimated Creat Clear 36, Estimated GFR 47 L, Est GFR ( Amer) 57 L, Glucose 102, Calcium 9.4, Magnesium 2.0 I & O for Last 24 hours: Intake & Output 05/02/19 05/03/19 05/04/19 05/05/19 11:59 11:59 11:59 11:59 Intake Total 120 / 120 Balance 120 / 120 Weight 118 lb 6 oz - Constitutional no acute distress, thin, chronically ill appearing - *Routine HEENT Exam Head: Present: normocephalic Eye: Present: EOMI, PERRL, conjunctivae pink. Absent: nystagmus ENT: Present: mucous membranes moist, oropharynx clear, TM's clear bilaterally - *Routine Neck Exam Present: supple. Absent: lymphadenopathy, thyromegaly - *Routine Respiratory Exam Present: CTA bilaterally. Absent: accessory muscle use - *Routine Cardiovascular Exam Present: RRR - *Routine Abdominal Exam Present: soft, normoactive bowel sounds. Absent: tenderness, distended - *Routine Extremities Exam Present: edema (trace left foot and ankle), pulses intact. Absent: clubbing, calf tenderness, joint swelling - *Routine Skin Exam Present: intact, pallor. Absent: rash - *Routine Neurological Exam Present: alert, oriented X3, motor deficit (decreased lower extremity strength, right moreso than left), abnormal gait, moving all extremities, normal tone. 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 Current visit: Yes Status: Chronic Category: Medical Code(s): C78.89 - Secondary malignant neoplasm of other digestive organs (3) Change in mental status Current visit: Yes Status: Acute Qualifiers: Altered mental status type: transient alteration of awareness Qualified C ode(s): R40.4 - Transient alteration of awareness Category: Medical Code(s): R41.82 - Altered mental status, unspecified (4) Slurring of speech Current visit: Yes Status: Acute Category: Medical Code(s): R47.81 - Slurred speech (5) Chronic cough Current visit: No Status: Acute Category: Medical Code(s): R05 - Cough (6) Cardiac pacemaker in situ Current visit: No Status: Chronic Category: Medical Code(s): Z95.0 - Presence of cardiac pacemaker (7) HTN (hypertension) Current visit: Yes Status: Chronic Qualifiers: Hypertension type: essential hypertension Qualified Code(s): I10 - Essential (primary) hypertension Category: Medical Code(s): I10 - Essential (primary) hypertension (8) History of atrial fibrillation Current visit: No Status: Chronic Category: Medical Code(s): Z86.79 - Personal history of other diseases of the circulatory system (9) Anemia, unspecified Current visit: Yes Status: Acute Qualifiers: Anemia type: other cause Other causes of anemia: antineoplastic chemotherapy Qualified Code(s): D64.81 - Anemia due to antineoplastic chemotherapy; T45.1X5A - Adverse effect of antineoplastic and immunosuppressive drugs, initial encounter Category: Medical Code(s): D64.9 - Anemia, unspecified - Assessment and plan all Dx Assessment and Plan for all problems:: Blood pressure currently improved, continue home amlodipine and metoprolol and monitor. Aspirin daily. CT head, carotid dopplers and echo to evaluate for acute vascular event. Labs to evaluate for metabolic abnormalities, anemia, renal insufficiency. PT, OT, ST evaluation and Care Management consultation to investigate discharge disposition including possible inpatient rehabilitation, home with family for therapy or home with family for palliative care depending on test results. Continue tramadol PRN mild-moderate pain and Morphine PRN for severe pain related to metastatic pancreatic cancer, known bony metastasis. She did not tolerate oxycodone.
[2019-05-05 07:32] LABS: Anion Gap 10.4 mEq/L (5-15); Calcium 9.1 mg/dL (8.5-10.1)
--- NOTE | 2019-05-05 07:58 | Progress Note ---
Internal Medicine - PN: Subj *Date: 05/05/19 *Time: 07:57 Interval history: Overall patient slept well last night, has no pain, feels like her neurologic changes have cleared. Tolerating dexamethasone well. Exam Vital signs and Labs for Last 24 Hours: Temp Pulse Resp BP Pulse Ox 98.5 F 72 17 149/65 H 92 L 05/05/19 04:00 05/05/19 04:00 05/05/19 04:00 05/05/19 04:00 05/05/19 00:00 Laboratory Results - last 24 hr 05/04/19 12:50: WBC 11.5 H, RBC 3.70 L, Hgb 10.7 L, Hct 33.7 L, MCV 90.9, MCH 28.7, MCHC 31.6 L, RDW 15.9, Plt Count 308, MPV 7.9, Neut % (Auto) 74.3, Lymph % (Auto) 14.3, [place] % (Auto) 6.5, Eos % (Auto) 4.2, Baso % (Auto) 0.7, Neut # (Auto) 8.6 H, Lymph # (Auto) 1.7, [place] # (Auto) 0.7, Eos # (Auto) 0.5 H, Baso # (Auto) 0.1 05/04/19 12:50: Sodium 132 L, Potassium 4.1, Chloride 95 L, Carbon Dioxide 28, Anion Gap 13.1, BUN 20 H, Creatinine 1.12 H, Estimated Creat Clear 36, Estimated GFR 47 L, Est GFR ( Amer) 57 L, Glucose 102, Calcium 9.4, Magnesium 2.0 05/05/19 07:13: Sodium 130 L, Potassium 4.4, Chloride 95 L, Carbon Dioxide 29, Anion Gap 10.4, BUN 24 H, Creatinine 1.10 H, Estimated Creat Clear 36, Estimated GFR 48 L, Est GFR ( Amer) 58 L, Glucose 200 H D, Calcium 9.1 I & O for Last 24 hours: Intake & Output 05/02/19 05/03/19 05/04/19 05/05/19 11:59 11:59 11:59 11:59 Intake Total 120 / 120 Balance 120 / 120 Weight 118 lb 6 oz 118 lb 6 oz Narrative: Patient is up in the chair. Feeling well. No neurologic deficits. Lungs are clear. Heart rate regular. Abdomen soft, no edema. Oropharynx clear. Abdomen soft. 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 Current visit: Yes Status: Chronic Category: Medical Code(s): C78.89 - Secondary malignant neoplasm of other digestive organs (3) Change in mental status Current visit: Yes Status: Acute Qualifiers: Altered mental status type: transient alteration of awareness Qualified Code(s): R40.4 - Transient alteration of awareness Category: Medical Code(s): R41.82 - Altered mental status, unspecified (4) Slurring of speech Current visit: Yes Status: Acute Category: Medical Code(s): R47.81 - Slurred speech (5) Chronic cough Current visit: No Status: Acute Category: Medical Code(s): R05 - Cough (6) Cardiac pacemaker in situ Current visit: No Status: Chronic Category: Medical Code(s): Z95.0 - Presence of cardiac pacemaker (7) HTN (hypertension) Current visit: Yes Status: Chronic Qualifiers: Hypertension type: essential hypertension Qualified Code(s): I10 - Essential (primary) hypertension Category: Medical Code(s): I10 - Essential (primary) hypertension (8) History of atrial fibrillation Current visit: No Status: Chronic Category: Medical Code(s): Z86.79 - Personal history of other diseases of the circulatory system (9) Anemia, unspecified Current visit: Yes Status: Acute Qualifiers: Anemia type: other cause Other causes of anemia: antineoplastic chemoth erapy Qualified Code(s): D64.81 - Anemia due to antineoplastic chemotherapy; T45.1X5A - Adverse effect of antineoplastic and immunosuppressive drugs, initial encounter Category: Medical Code(s): D64.9 - Anemia, unspecified - Assessment and plan all Dx Assessment and Plan for all problems:: Given newly found 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 She feels better. Long discussion about future planning. My recommendation to her has been to have hospice enrolled and sitter home care versus long-term care. She will think about this and discuss with family. We will continue dexamethasone while in-house.
[2019-05-05 08:15] LABS: Basophils % 0.1 % (0.1-2.0); Eosinophils # 0.1 K/mm3 (0.0-0.4); Eosinophils % 0.7 % (0.1-12.0); Hematocrit 33.9 % (37.0-47.0); Hemoglobin 10.5 g/dL (12.2-16.2); Lymphocytes # 0.7 K/mm3 (0.7-4.5); Lymphocytes % 10.8 % (10-50); Mean Corpuscular HGB Conc 31.1 g/dL (31.8-35.4); Mean Corpuscular Volume 92.1 fl (81-99); Mean Platelet Volume 7.5 fl (7.4-10.4); Monocytes # 0.1 K/mm3 (0.1-1.0); Monocytes % 1.7 % (1.7-9.3); Neutrophils # 5.7 K/mm3 (1.8-7.8); Neutrophils % 86.6 % (37.0-80.0); Platelet Count 258 K/mm3 (142-424); Red Blood Count 3.68 M/mm3 (4.20-5.40); Red Cell Distribution Width 15.9 % (11.5-17.5); White Blood Count 6.5 K/mm3 (4.8-10.8)
[2019-05-05 11:58] LABS: Hypochromasia 1+; Lymphocytes % 14 % (10-50); Monocytes % 3 % (2-9); Neutrophils % 83 % (42-76); Total Cells Counted 100
--- NOTE | 2019-05-05 14:13 | Discharge Summary ---
General - General Admission date:: 05/04/19 Discharge date: 05/05/19 HPI HPI: 78 yr old female with HTN and known metastatic pancreatic cancer presented to office today with reports of mental status changes and increasing weakness. She has had at least 3 distinct episodes of slurred speech over the past 24 hours, left hemineglect described by her grandaughter, difficulty walking without assistance and difficulty with word-finding. She also had difficulty swallowing some of her pills last night. She has taken aspirin at home and over the phone we advised her to take an additional dose of her amlodipine for her known HTN. This morning she continues to have some ataxia, difficulty with word-finding, disorientation and was admitted for workup of mental status changes with concern for acute CVA, metabolic abnormalities or worsening metastatic disease. Hospital Course Hospital Course: Patient was admitted to the hospital, diagnostic testing ensued, CT scan revealed the presence of 3 different metastatic lesions consistent with her known diagnosis of metastatic pancreatic adenocarcinoma. Patient was started on intravenous dexamethasone and felt much better after the first administration. Overnight she did well. She had no seizure activity. Ataxia resolved and her energy level and appetite also improved. This morning we had a long talk about overall future plans, she is inclined to declined further chemotherapy offers and like to go home with family and have hospice consultation as an outpatient. This is of course, very reasonable. We will discharge home today with dexamethasone and her previously prescribed tramadol for pain. I will see her in my offices in one week. Objective Vital signs: Temp Pulse Resp BP Pulse Ox 98.5 F 75 18 151/77 H 96 05/05/19 08:00 05/05/19 08:00 05/05/19 08:00 05/05/19 08:00 05/05/19 08:00 no acute distress, thin, chronically ill appearing - *Routine HEENT Exam Head: Present: normocephalic, atraumatic - *Routine Neck Exam Present: supple, full ROM - *Routine Respiratory Exam Present: CTA bilaterally - *Routine Cardiovascular Exam Present: RRR, Normal S1, Normal S2 - *Routine Abdominal Exam Present: soft - *Routine Extremities Exam Present: full ROM - *Routine Neurological Exam Present: alert, oriented X3, normal speech Results Labs on day of discharge: Labs from last 24 hours 05/05/19 05/05/19 07:13 07:13 WBC 6.5 D RBC 3.68 L Hgb 10.5 L Hct 33.9 L MCV 92.1 MCH 28.7 MCHC 31.1 L RDW 15.9 Plt Count 258 MPV 7.5 Neut % (Auto) 86.6 H Lymph % (Auto) 10.8 [place] % (Auto) 1.7 Eos % (Auto) 0.7 Baso % (Auto) 0.1 Neut # (Auto) 5.7 Lymph # (Auto) 0.7 [place] # (Auto) 0.1 Eos # (Auto) 0.1 Baso # (Auto) 0.0 Total Counted 100 Neutrophils % (Manual) 83 H Lymphocytes % (Manual) 14 Monocytes % (Manual) 3 Platelet Estimate Normal Hypochromasia 1+ Sodium 130 L Potassium 4.4 Chloride 95 L Carbon Dioxide 29 Anion Gap 10.4 BUN 24 H Creatinine 1.10 H Estimated Creat Clear 36 Estimated GFR 48 L Est GFR ( Amer) 58 L Glucose 200 H D Calcium 9.1 DS: Diagnosis - Discharge Diagnosis (1) Ataxia Status: Chronic (2) Metastatic 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 Status: Chronic (3) Change in mental status Status: Acute (4) Slurring of speech Status: Acute (5) Chronic cough Status: Acute (6) Cardiac pacemaker in situ Status: Chronic (7) HTN (hypertension) Status: Chronic (8) History of atrial fibrillation Status: Chronic (9) Anemia, unspecified Status: Acute (10) Brain metastases Status: Acute Discharge Plan - Patient Discharge Instructions ACTIVITY: Continue current activity DIET: continue same diet Additional Instructions: Hospice eval as outpt Patient Instructions: DI for Muscle Weakness - Follow up Plan Follow up with: Carolyn Ellison APRN [Nurse Practitioner] - 05/11/19 Disposition: Home, Self-Group Home Medications: Home Medications Medication Instructions Recorded Confirmed Type atorvastatin 20 mg tablet 20 mg PO HS 90 Days tab 08/12/17 05/04/19 History metoprolol tartrate 25 mg tablet 25 mg PO BID 90 Days tab 08/12/17 05/04/19 History omeprazole magnesium 20 mg 20 mg PO DAILY tab 09/04/17 05/04/19 History tablet,delayed release Estrogens, Conjugated [Premarin] 1 applic VG WEEKLY 05/04/18 05/04/19 History Ondansetron [Zofran 4mg ODT] 4 mg PO Q8HP PRN #12 tab.rapdis 05/04/18 05/04/19 Rx melatonin 5 mg capsule 5 mg PO HS cap 06/12/18 05/04/19 History multivit,mineral-folic acid 800 1 tab PO DAILY tab 06/12/18 05/04/19 History mcg-vit K 100 mcg-herbal no.289 tablet albuterol sulfate HFA 90 1 puff INHALATION NEEDED PRN 30 07/29/18 05/04/19 History mcg/actuation aerosol inhaler Days g aspirin 81 mg tablet,delayed 81 mg PO HS tab 08/29/18 05/04/19 History release Amlodipine Besylate [Amlodipine 5 mg PO DAILY 05/04/19 05/04/19 History 5mg tab] Tramadol HCl [Tramadol 50mg 50 mg PO Q4HP PRN 05/04/19 05/04/19 History Tab] Dexamethasone [Decadron] 4 mg PO BID #28 tab 05/05/19 Rx Prescriptions/Medication Reconciliation: New Dexamethasone [Decadron] 4 mg PO BID #28 tab Continued metoprolol tartrate 25 mg tablet 25 mg PO BID 90 Days tab atorvastatin 20 mg tablet 20 mg PO HS 90 Days tab melatonin 5 mg capsule 5 mg PO HS cap multivit,mineral-folic acid 800 mcg-vit K 100 mcg-herbal no.289 tablet 1 tab PO DAILY tab albuterol sulfate HFA 90 mcg/actuation aerosol inhaler 1 puff INHALATION NEEDED PRN 30 Days g PRN Reason: soa omeprazole magnesium 20 mg tablet,delayed release 20 mg PO DAILY tab Amlodipine Besylate [Amlodipine 5mg tab] 5 mg PO DAILY Estrogens, Conjugated [Premarin] 1 applic VG WEEKLY Ondansetron [Zofran 4mg ODT] 4 mg PO Q8HP PRN #12 tab.rapdis PRN Reason: Nausea Tramadol HCl [Tramadol 50mg Tab] 50 mg PO Q4HP PRN PRN Reason: PAIN Discontinued aspirin 81 mg tablet,delayed release 81 mg PO HS tab - Problem Reconciliation Problems Reviewed?: Yes
--- NOTE | 2019-05-06 18:49 | Cardiology Report ---
APPROVED REPORT [employer] Supervisor: CT Laterality: Bilateral Study Quality: Adequate Indications: MS changes Risk Factors Hypertension: Hyperlipidemia pancreatic ca, stage IV Doppler Spectral Velocity Analysis ECA (R) 152.00/ cm/sECA (L) 84.20/ cm/s dICA (R) 89.30/29.40 cm/sdICA (L) 105.00/24.80 cm/s Shannan (R) 90.40/23.60 cm/smICA (L) 76.60/18.20 cm/s pICA (R) 115.00/24.40 cm/spICA (L) 59.60/15.40 cm/s dCCA (R) 64.40/10.20 cm/sdCCA (L) 66.40/11.50 cm/s pCCA (R) 79.40/14.10 cm/spCCA (L) 81.70/12.10 cm/s Vert (R) 62.90/ cm/sVert (L) 31.30/ cm/s ICA/CCA 1.79 ICA/CCA 1.58 Conclusion Duplex evaluation demonstrates stenosis of the right proximal internal carotid artery <20% with PSV <140 cm/sec, EDV <100 cm/sec, and IC/CC Ratio <4.0 tortuous ICA Duplex evaluation demonstrates stenosis of the left proximal internal carotid artery <20% with PSV <140 cm/sec, EDV <100 cm/sec, and IC/CC Ratio <4.0. Duplex evaluation demonstrates antegrade flow of the bilateral Vertebral Arteries. Electronically signed by : Tani Greenwood MD 05/06/2019 18:49:15
--- NOTE | 2019-05-08 16:44 | Electrocardiograph Report ---
APPROVED REPORT Exam: Resting ECG HR:74 bpm ECG Measurements Heart Rate 74 AXES ME 108 P 30 QRSd 90 QRS 22 QT 398 T25 QTc 441 <Conclusion> Electronic atrial pacemaker Cannot rule out Anterior infarct, age undetermined Abnormal ECG Electronically signed by : Adalberto Brown, 05/08/2019 16:43:55
== END 2019-05-05 16:01 | disposition home or self-care (01) ==
LOC: INF 10:07 → 2ND 10:07
PROVIDERS: ADMIT Internal Medicine Adolescent Medicine; ATTEND Internal Medicine Adolescent Medicine
DX: C25.9 Malignant neoplasm of pancreas, unspecified; C79.31 Secondary malignant neoplasm of brain; D63.0 Anemia in neoplastic disease; C78.00 Secondary malignant neoplasm of unspecified lung; I10 Essential (primary) hypertension; Z23 Encounter for immunization; T45.1X5A Adverse effect of antineoplastic and immunosuppressive drugs, initial encounter; C79.51 Secondary malignant neoplasm of bone; R47.81 Slurred speech; C78.7 Secondary malignant neoplasm of liver and intrahepatic bile duct; Z95.0 Presence of cardiac pacemaker; D64.81 Anemia due to antineoplastic chemotherapy; R27.0 Ataxia, unspecified; I48.91 Unspecified atrial fibrillation
CPT/HCPCS: 70470; 80048; 83735; 85007; 85025; 90686; 92610; 93005; 93306; 93880; 97110; 97116; 97161; 97166; 97535; G0378; Q9967